=== PATIENT | female | born 1975 | race Caucasian/White ===

== ENCOUNTER 2021-11-04 09:35 | Outpatient (CLI) | payer OTHER, SELFPAY ==
--- NOTE | ~2021-11-04 | MM_ITS ---
EXAMINATION: MM screening lauren BI w keith HISTORY: Screening mammogram TECHNIQUE: Craniocaudal and mediolateral oblique 3-D tomosynthesis images were obtained and synthetic 2-D images were generated. CAD analysis was submitted and interpreted. COMPARISON: 01/10/2019 bilateral screening mammogram BREAST PARENCHYMAL COMPOSITION: There are scattered areas of fibroglandular density. FINDINGS: There is no evidence of suspicious mass, calcification, or architectural distortion to sugg est malignancy in either breast. There has been no suspicious interval change. IMPRESSION: 1. No mammographic evidence of malignancy. 2. Recommend routine screening mammography in one year. BI-RADS Category 1: Negative Reviewed, dictated and finalized at location B.
== END 2021-11-04 09:36 | disposition home or self-care (01) ==
LOC: ANHIMG 09:39
PROVIDERS: PCP Physician Assistant; Visit Provider Physician Assistant
DX: Z12.31 Encounter for screening mammogram for malignant neoplasm of breast (principal)
CPT/HCPCS: 77063; 77067

== ENCOUNTER → 2022-03-07 15:59 | Outpatient (CLI) | payer OTHER, SELFPAY ==
--- NOTE | ~2022-03-07 | US_ITS ---
EXAMINATION: US thyroid DATE: 03/07/2022 16:14 INDICATION: Nontoxic goiter. Radioactive iodine treatment 7 years ago. TECHNIQUE: Multiple ultrasound images of the thyroid were obtained. COMPARISON: None. FINDINGS: The right thyroid lobe measures 3.5 x 0.5 x 0.7 cm. The left thyroid lobe measures 2.8 x 0.6 x 0.9 c m. The isthmus measures 0.1 cm. There is normal echotexture and echogenicity throughout the thyroid g land. No discrete nodules identified. Normal vascular flow is present. IMPRESSION: Small thyroid gland without other sonographic abnormality. Reviewed, dictated and finalized at location K. GHTS STRATEGIST
== END ==
PROVIDERS: PCP Physician Assistant; Visit Provider Internal Medicine Endocrinology, Diabetes & Metabolism
DX: E04.9 Nontoxic goiter, unspecified (principal)
CPT/HCPCS: 76536

== ENCOUNTER 2023-08-11 08:41 | Outpatient (CLI) | payer OTHER, SELFPAY ==
--- NOTE | ~2023-08-11 | MM_ITS ---
EXAMINATION: MM screening lauren BI w keith HISTORY: Screening mammogram TECHNIQUE: Craniocaudal and mediolateral oblique 3-D tomosynthesis images were obtained and synthetic 2-D images were generated. CAD analysis was submitted and interpreted. COMPARISON: 11/04/2021, 01/10/2019 bilateral screening mammogram examinations BREAST PARENCHYMAL COMPOSITION: There are scattered areas of fibroglandular density. FINDINGS: There is no evidence of suspicious mass, calcification, or architectural distortion to sugg est malignancy in either breast. There has been no suspicious interval change. IMPRESSION: 1. No mammographic evidence of malignancy. 2. Recommend routine screening mammography in one year. BI-RADS Category 1: Negative Reviewed, dictated and finalized at location A.
== END 2023-08-11 08:42 ==
LOC: MICIMG 08:41
PROVIDERS: PCP Physician Assistant; Visit Provider Physician Assistant
DX: Z12.31 Encounter for screening mammogram for malignant neoplasm of breast (principal)
CPT/HCPCS: 77063; 77067

== ENCOUNTER → 2024-09-18 12:41 | Outpatient (CLI) | payer OTHER, SELFPAY ==
--- NOTE | ~2024-09-18 | XR_ITS ---
3 VIEWS THORACIC SPINE Ordering provider: Bree Cruz, PA History: . THORACIC BACK PAIN . Comparison: None. FINDINGS: VERTEBRAL BODIES: Normal height and alignment. No visible fracture or subluxation. DISK SPACES: Narrowing of the disc spaces at multiple levels in the upper thoracic area. SOFT TISSUES: Normal. IMPRESSION: No acute osseous abnormality of the thoracic spine. Reviewed, dictated and finalized at location A.
== END ==
LOC: EXPCRAD 12:46
PROVIDERS: PCP Physician Assistant; Visit Provider Physician Assistant
DX: M54.6 Pain in thoracic spine (principal)
CPT/HCPCS: 72072

== ENCOUNTER 2024-10-20 15:27 | Outpatient (CLI) | payer OTHER, SELFPAY ==
--- NOTE | ~2024-10-20 | MM_ITS ---
EXAMINATION: MM screening lauren BI w keith HISTORY: Screening TECHNIQUE: Craniocaudal and mediolateral oblique 3-D tomosynthesis images were obtained and synthetic 2-D images were generated. CAD analysis was submitted and interpreted. COMPARISON: Comparison to multiple prior studies sequentially, with oldest reviewed study dated 07/2018. BREAST PARENCHYMAL COMPOSITION: Not dense: There are scattered areas of fibroglandular density. FINDINGS: There is a new focal asymmetry in the lower central aspect of the left breast at approximat amanda 6:00, middle third. Right breast is stable without evidence for malignancy. IMPRESSION: 1. New focal left breast asymmetry lower central breast, middle third. 2. Additional mammographic views and possible breast ultrasound are recommended. BI-RADS Category 0: Incomplete: Needs additional imaging evaluation. Reviewed, dictated and finalized at location [] IMPRESSION: 1. New focal left breast asymmetry lower central breast, middle third. 2. Additional mammographic views and possible breast ultrasound are recommended . BI-RADS Category 0: Incomplete: Needs additional imaging evaluation.
== END 2024-10-20 15:28 | disposition home or self-care (01) ==
LOC: MICIMG 15:27
PROVIDERS: PCP Physician Assistant; Visit Provider Physician Assistant
DX: Z12.31 Encounter for screening mammogram for malignant neoplasm of breast (principal); N64.89 Other specified disorders of breast
CPT/HCPCS: 77063; 77067

== ENCOUNTER 2024-10-25 23:18 | Emergency (ER) | payer OTHER, SELFPAY ==
--- OUTSIDE RECORDS SUMMARY | 2024-10-25 23:21 | XMS_ITS | Encounter Summary ---
Author Organization [facility] Healthcare Address [address] [place] [id number] Care Team Providers Care Scullion Chief Name Role Phone Bree Cruz Primary Care Provider [phone]- [phone] Reason for Visit * Reason Onset Date Comments Test Results 10/21/2024 Encounter Details Date Type Department Care Team (Late st Contact Info) Description 10/21/2024 Results Follow-Up [facility] Family Medicine [address] [place] [address] Bree Cruz PA [address] [place] [address] Screening Mammogram Bilateral W Micheal Social History Tobacco Use Types Packs/Day Years Used Date Smoking Tobacco: Former Smokeless Tobacco: Never Alcohol Use Standard Drinks/Week Comments Yes 0 (1 standard drink = 0.6 oz pur e alcohol) AUDIT-C Answer Date Recorded Q1: How often do you have a drink containing alc ohol? 2-4 times a month 10/08/2024 Q2: How many drinks containi ng alcohol do you have on a typical day when you are drinking? 3 or 4 10/08/2024 Q3: How often do you have si x or more drinks on one occasion? Less than monthly 10/08/2024 PHQ-2 Answer Date Recorded PHQ-2 Total Score (If total score is 3 or more points, staff should administer the PHQ-9) 0 10/08/2024 Personal Safety Answer Date Recorded Have you ever been in or are you currently in a harmful physical or emotional relationship or is someone making you feel afraid or unsafe? 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 Per chart notes called back line and per back line transferred call to practice Does message need to be routed? Yes-Action Needed Reason for Warm Transfer: Patient returning call from practice Practice Accepted the Warm Transfer? Yes Additional Comments If YES above, and no barriers. documented in this encounter Plan of Treatment Not on file documented as of this encounter Visit Diagnoses Not on filedocumented in this encounter Care Teams Scullion Chief Relationship Specialty Start Date End Date Bree Cruz PA [address] [place] [address] PCP - General Internal Medicine 08/07/18 documented as of this encounter
--- OUTSIDE RECORDS SUMMARY | 2024-10-25 23:21 | XMS_ITS | Encounter Summary ---
Author Organization [facility] Healthcare Address [address] [place] [address] Care Team Providers Care Oil Refinery Process Technician Name Role Phone Bree Cruz Primary Care Provider [phone]- [phone] Encounter Details Date Type Department Care Team (Latest Contact Info) Description 10/04/2024 Results Follow-Up [facility] Family Medicine [address] [place] [address] Bree Cruz PA [address] [place] [address] Hemoglobin A1c, Comprehensive metabolic panel, Lipid panel, Vitamin B12 Social History Tobacco Use Types Packs/Day Years [...] on file Legal Sex 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
--- OUTSIDE RECORDS SUMMARY | 2024-10-25 23:21 | XMS_ITS | Referral Summary ---
Author Organization [facility] [place] [address] [place] [address] [place] [phone] Care Team Providers Care Dewer Name Role Phone Bree Cruz Primary Care Provider [phone] Encounters Date Type Department Care Team Description 10/21/2024 Orders Only [facility] Medicine [address] [place] [address] [place] [phone] Bree Cruz PA Abnormal mammogram (Primary Dx) 10/21/2024 Results Follow-Up [address] [place] [phone] Bree Cruz PA Screening Mammogram Bilateral W Micheal 10/16/2024 10:00 AM CDT Office Visit [facility] Hand Surgery [address] [place] [address] [place] [phone] Cielo Eldridge MD Osteoarthritis of carpometacarpal (CMC) joint of left thumb, unspecified osteoarthritis type (Primary Dx); Osteoarthritis of carpometacarpal (CMC) joint of right thumb, unspecified osteoarthritis type 10/08/2024 9:00 AM CDT Office Visit [address] [place] [phone] Bree Cruz PA Annual physical exam (Primary Dx); Hyperlipidemia associated with type 2 diabetes mellitus (HCC); Controlled type 2 diabetes mellitus without complication, without long-term current use of insulin (HCC); Situational anxiety; Acquired hypothyroidism; Vitamin D deficiency; Gastroesophageal reflux disease without esophagitis; Breast cancer screening by mammogram; Immunity status testing; Morbid obesity (HCC); BMI 39.0-39.9,adult 10/06/2024 Telephone [facility] Diabetes and Endocrinology [address] [place] [phone] Ruby Diaz, YASIR Med Refill (Levothyroxine) 10/04/2024 Results Follow-Up [address] [phone] Bree Cruz PA Hemoglobin A1c, Comprehensive metabolic panel, Lipid panel, Vitamin B12 10/03/2024 Telephone [facility] [address] [place] [phone] Ruby Diaz NP Prior Auth (Ozempic) 10/01/2024 Orders Only [address] [phone] Bree Cruz PA Controlled type 2 diabetes mellitus without complication, without long-term current use of insulin (HCC) (Primary Dx) 10/01/[address] [phone] Bree Cruz PA Medical Question/Miscellaneous 09/30/2024 Telephone [facility] [address] [phone] Ruby Diaz, YASIR Med Refill 09/20/2024 Results Follow-Up [address] [phone] Bree Cruz PA POCT urinalysis dipstick, Urine culture Urine, clean voided, XR Spine Thoracic 3 Vw 09/18/2024 11:30 AM CDT Office Visit [address] [phone] Bree Cruz PA Chronic left-sided thoracic back pain (Primary Dx); Primary osteoarthritis of both hands; BMI 40.0-44.9, adult (HCC); Obesity, morbid, BMI 40.0-49.9 (HCC) 09/18/2024 Nurse Triage [facility] [address] [facility] [address] [place] [phone] Doris Spence RN from Last 3 Months Allergies No known active allergies Medications cetirizine (ZyrTEC) 10 mg tablet Take 1 tablet (10 mg total) by mouth daily Active folic acid (FOLVITE) 1 mg tablet TAKE 1 TABLET EVERY DAY BY ORAL ROUTE IN THE MORNING FOR 90 DAYS. 07/02/19 23 Active ergocalciferol (VITAMIN D) 50,000 unit capsule Active omeprazole (PriLOSEC) 40 mg capsuleIndication s:Gastroesophagea l reflux disease without esophagitis TAKE 1 CAPSULE DAILY 90 capsule 3 04/28/19 25 Active semaglutide (Ozempic) 0.25 mg or 0.5 mg (2 mg/3 mL) pen injector injectionIndicati ons:Controlled type 2 diabetes mellitus without complication, without long-term current use of insulin ([facility]) Inject 0.5 mg under the skin once a week 9 mL 3 10/01/19 25 Active escitalopram (LEXAPRO) 20 mg tabletIndications :Situational anxiety Take 1 tablet (20 mg total) by mouth daily 90 tablet 1 10/07/19 25 Active meloxicam (MOBIC) 7.5 mg tabletIndications :Primary osteoarthritis of both hands Take 1 tablet (7.5 mg total) by mouth daily 90 tablet 1 10/07/19 25 Active metFORMIN XR (GLUCOPHAGE XR) 500 mg 24 hr tabletIndications :Controlled type 2 diabetes mellitus without complication, without long-term current use of insulin ([facility]) Take 2 tablets (1,000 mg total) by mouth daily with dinner 180 tablet 2 10/07/19 25 Active rosuvastatin (CRESTOR) 10 mg tabletIndications :Hyperlipidemia associated with type 2 diabetes mellitus (HCC) Take 1 tablet (10 mg total) by mouth daily 90 tablet 1 10/07/19 25 Active levothyroxine (SYNTHROID) 137 mcg tabletIndications :Acquired hypothyroidism Take 1 tablet (137 mcg total) by mouth 6 (six) times a week 72 tablet 3 10/18/19 25 026 Active metFORMIN XR (GLUCOPHAGE XR) 500 mg 24 hr tablet Take 2 tablets (1,000 mg total) by mouth daily with dinner 180 tablet 2 08/13/19 24 025 Discontinued levothyroxine (SYNTHROID) 137 mcg tabletIndications :Acquired hypothyroidism Take 1 tablet (137 mcg total) by mouth 6 (six) times a week 72 tablet 3 01/03/20 24 025 Discontinued(Re order) escitalopram (LEXAPRO) 20 mg tablet TAKE 1 TABLET BY MOUTH EVERY DAY 30 tablet 8 06/06/19 25 025 Discontinued semaglutide (Ozempic) 0.25 mg or 0.5 mg (2 mg/3 mL) pen injector injection INJECT 0.5MG UNDER THE SKIN EVERY 7 DAYS 9 mL 3 06/12/19 25 025 Discontinued(Re order) rosuvastatin (CRESTOR) 10 mg tablet TAKE 1 TABLET BY MOUTH EVERY DAY 30 tablet 8 09/03/19 25 025 Discontinued meloxicam (MOBIC) 7.5 mg tablet TAKE 1 TABLET BY MOUTH EVERY DAY 30 tablet 2 09/06/19 25 025 Discontinued levothyroxine (SYNTHROID) 137 mcg tabletIndications :Acquired hypothyroidism Take 1 tablet (137 mcg total) by mouth 6 (six) times a week 72 tablet 3 10/07/19 25 025 Discontinued(Re order) Hospital, Clinic, or Other Facility Administered Medication Ordered Dose Route Frequency Start Date End Date Status lidocaine (XYLOCAINE) 10 mg/mL (1 %) injection 1 mLIndications:Adminis tration of Local Anesthesia 1 mL One-Time Injection 10/16/2024 5 Ended lidocaine (XYLOCAINE) 10 mg/mL (1 %) injection 1 mLIndications:Adminis tration of Local Anesthesia 1 mL One-Time Injection 10/16/2024 5 Ended methylPREDNISolone acetate (DEPO-medrol) injection 40 mgIndications:Osteoar thritis of carpometacarpal (CMC) joint of left thumb, unspecified osteoarthritis type 40 mg intra-artic One-Time Injection 10/16/2024 5 Ended methylPREDNISolone acetate (DEPO-medrol) injection 40 mgIndications:Osteoar thritis of carpometacarpal (CMC) joint of right thumb, unspecified osteoarthritis type 40 mg intra-artic One-Time Injection 10/16/2024 5 Ended triamcinolone (KENALOG) 40 mg/mL injection 40 mgIndications:Osteoar thritis of carpometacarpal (CMC) joint of right thumb, unspecified osteoarthritis type 40 mg intra-artic One-Time Injection 10/16/2024 5 Ended Active Problems Problem Noted Date Diagnosed Date Primary osteoarthritis of both hands 09/28/2024 Hyperlipidemia associated with type 2 diabetes rory lambert 06/16/2024 Assessment & Plan (10/18/2024 11:28 PM CDT): Encouraged patient to follow low fat/low chol diet like the Mediterranean diet. Increase good fats in the diet. Increase exercise. Monitor labs as needed. Continue Crestor 10 Fatigue 09/26/2023 Controlled type 2 diabetes rory lambert without complication, without long-term current use of insulin 08/13/2023 Assessment & Plan (10/18/2024 11:28 PM CDT): Stressed importance of continued A1c control to minimize the fci effects of diabetes. Bring accuchecks to office when instructed to do so. Check A1c about every 3-6 months. Take medication as prescribed. Get annual eye exam. Encouraged TALITA/Statin if able to tolerate. Encouraged weight control and encouraged diabetic diet and exercise. Well-controlled by Dr. Contreras. Continue semaglutide and metformin managed by endocrinology Assessment & Plan (12/20/2023 9:51 AM CDT): Chronic problem. A1c improved from 6.1% 09/15/22 to now 5.3%. Current medications: Metformin XR 1000mg with dinner Ozempic 0.5mg weekly Will update labs. Verified that she uses mychart. Aware to check results/results letter in [employer]. Will contact by phone if needed. DM eye exam due (has never had) Discussed with Ashley Arciniega: Strive for regular exercise (30min most days) and diet (get at least 4-5 servings of fruit and veggies daily, avoid processed foods, increase lean protein intake and decrease carb portions as well as fruit juices, regular soda & desserts). Watch carbs and simple sugars. Check the feet daily for skin breakdown and infection. Assessment & Plan (08/13/2023 12:29 PM CDT): Importance of diet and exercise was discussed Patient not tolerating metformin very well Switch metformin to 500 mg, XR 2 tabs with dinner, might need to lower it to 1 tab Start semaglutide 0.25 mg weekly x4 weeks and then continue with 0.5 mg weekly The patient was provided with samples. Side effects were discussed. The patient to send a message via [employer] in 4 to 6 weeks to see how she is tolerating MATHEUS (obstructive sleep apnea) 01/16/2022 Assessment & Plan (07/17/2022 8:46 AM CDT): The patient has not been able to be compliant with the CPAP therapy because of a dry mouth/sore throat with a fullface mask. I have recommended that she contact Linda to see a variety of nasal CPAP mask/nasal pillows and pick out a new style of mask with a chinstrap to see if this will improve the dry mouth/sore throat and she will follow-up here in 2 months. Assessment & Plan (01/16/2022 9:48 AM CDT): Patient will continue with auto titrating CPAP set at 5-20 cm water pressure. Denied need for supplies. SELIN Mckeon Family history of colon cancer in father 022 Assessment & Plan (10/29/2021 3:24 PM CDT): Awaiting patient was schedule her colonoscopy for colon cancer screening. Assessment & Plan (09/17/2021 2:52 PM CDT): Patient does have a family history of colon cancer with her father. Will recommend screening colonoscopy. Referral placed. History of 2019 novel coronavirus disease (COVID -19) 08/23/2020 Overview (08/23/2020): 03/2020 Breast cancer screening by mammogram 08/23/2020 Assessment & Plan (10/18/2024 11:28 PM CDT): Mammogram order provided Assessment & Plan (07/15/2023 9:04 PM CDT): Mammogram order provided Assessment & Plan (10/01/2022 8:36 PM CDT): Mammogram order provided Assessment & Plan (09/17/2021 2:51 PM CDT): Mammogram order provided Assessment & Plan (08/23/2020 4:56 PM CDT): Mammogram order provided Situational anxiety 06/28/2019 Assessment & Plan (10/18/2024 11:27 PM CDT): Anxiety stable with the Lexapro 20 Assessment & Plan (09/26/2023 10:43 AM CDT): Symptoms are stable with Lexapro 20. Refills available at pharmacy Assessment & Plan (05/13/2023 8:35 PM HOSPITALITY JOB TITLES): Continue Lexapro 20 Assessment & Plan (10/01/2022 8:35 PM CDT): Stable with Lexapro 20. Refills available at pharmacy Assessment & Plan (10/29/2021 3:24 PM CDT): Stable with Lexapro 20 Assessment & Plan (09/17/2021 2:51 PM CDT): Patient is doing well with Lexapro 20 mg. She is happy with the results. Continue to monitor. Discussed re-evaluation in about a year to see if ready to taper versus continuing based on her symptoms. Assessment & Plan (05/01/2021 6:27 PM HOSPITALITY JOB TITLES): Patient has tolerated the Lexapro 10 without difficulty. Her symptoms seem to have increased with the spica COVID. She would like to increase the dose to 20 mg. New prescription sent. Follow-up in 4-6 weeks to reassess. Assessment & Plan (08/18/2019 7:52 PM CDT): Continue lexparo. Sxs are stable. Assessment & Plan (06/28/2019 6:59 PM CDT): Discussed anxiety/depression sxs. They have peaked in the last few weeks but admits have been around for years. Recheck labs. Encoruaged counseling Discussed medication vs. Behavioral changes. Willing to start medicaiton. Reviewed risks, benefit, alternatives, side effects and proper use. Start lexapro. Call if sxs worsen or has s/h thoughts. Idiopathic hyperprolactinemia 06/28/2019 Assessment & Plan (08/18/2019 7:50 PM CDT): Recheck prolactin for stability Assessment & Plan (06/28/2019 6:59 PM CDT): Check labs Chronic pain of left knee 09/09/2018 Assessment & Plan (12/16/2018 5:30 PM CDT): Resolved prior to getting the MRI. She is happy with just monitoring it. She is to call if she has any further problems or concerns. Assessment & Plan (09/22/2018 9:27 PM CDT): Check xray. IBU prn. If sxs persist, may consider PT or MRI due to locking. BMI 39.0-39.9,adult 08/08/2018 Assessment & Plan (10/18/2024 11:28 PM CDT): Discussed the patient's BMI. The BMI is above average. BMI management plan is completed. BMI Follow-up includes: nutrition counseling, exercise counseling and education provided. Patient has an obesity-related condition (not limited to: hypertension, obstructive sleep apnea, osteoarthritis, hyperlipidemia, diabetes, etc.). Therefore, morbid obesity may be documented for patients with a BMI between 35.00-39.99. Assessment & Plan (06/28/2019 6:58 PM CDT): Obesity is unchanged. Discussed the patient's BMI. The BMI is above average. BMI management plan is completed. BMI Follow-up includes: nutrition counseling, exercise counseling and education provided. Assessment & Plan (06/16/2019 2:04 PM CDT): Obesity is unchanged. Discussed the patient's BMI. The BMI is above average. BMI management plan is completed. BMI Follow-up includes: nutrition counseling, exercise counseling and education provided. Assessment & Plan (08/10/2018 10:09 AM CDT): Obesity is unchanged. Discussed the patient's BMI. The BMI is above average; BMI management plan is completed. General weight loss/lifestyle modification strategies discussed (elicit support from others; identify saboteurs; non-food rewards, etc). Morbid obesity 08/08/2018 Assessment & Plan (10/08/2024 9:05 AM CDT): Discussed the patient's BMI. The BMI is above average. BMI management plan is completed. BMI Follow-up includes: nutrition counseling, exercise counseling and education provided. Assessment & Plan (08/10/2018 10:08 AM CDT): Obesity is unchanged. Discussed the patient's BMI. The BMI is above average; BMI management plan is completed. General weight loss/lifestyle modification strategies discussed (elicit support from others; identify saboteurs; non-food rewards, etc). Acquired hypothyroidism 08/08/2018 Assessment & Plan (10/18/2024 11:27 PM CDT): Continue levothyroxine 137 mcg. Monitor labs. Assessment & Plan (12/20/2023 9:57 AM CDT): Chronic problem. Clinically euthryoid, last TSH suppressed at 0.184 08/13/23. Was at that time on both levothyroxine & cytomel. Cytomel stopped at that time and continues on levothyroxine 137 mcg daily. Aware to take 1st thing in morning, 30-60 minutes before food/drink/other medications. Will update TFTs today. Verified that she uses mychart. Aware to check results/results letter in mychart. Will contact by phone if needed. Assessment & Plan (09/26/2023 10:43 AM CDT): Continue levothyroxine. Managed by Dr. Contreras Assessment & Plan (08/13/2023 12:28 PM CDT): Chronic, probably over replaced Update TFTs Will adjust dose of medication, probably stopped Cytomel and continue with levothyroxine Assessment & Plan (05/13/2023 8:35 PM HOSPITALITY JOB TITLES): History of hypothyroidism. Was managed by Dr. Cuevas but she is moved out of the area. Would like to establish with a new upholstery trimmer. Recommend the [facility] group at [place]. Will make referral. She has all of her refills at this point to hold her over until her appointment Assessment & Plan (10/01/2022 8:36 PM CDT): Continue per Dr. Cuevas. She is managing her metformin levothyroxine and Cytomel Assessment & Plan (10/29/2021 3:27 PM CDT): Continue levothyroxine. Monitor labs. Assessment & Plan (09/17/2021 2:50 PM CDT): Continue levothyroxine. Monitor labs. Assessment & Plan (08/23/2020 4:54 PM CDT): Continue levothyroxine Assessment & Plan (08/18/2019 7:51 PM CDT): Continue replacement. Check labs Assessment & Plan (06/28/2019 6:58 PM CDT): Recheck levels Assessment & Plan (09/22/2018 9:27 PM CDT): Due for labs. Assessment & Plan (08/10/2018 10:09 AM CDT): Check labs. Continue repalcement Annual physical exam 08/08/2018 Assessment & Plan (10/18/2024 11:28 PM CDT): Encouraged healthy lifestyle, good nutrition and exercise. Encouraged Calcium and Vitamin D and weight bearing exercise for bone health. Reviewed immunizations Reviewed age appropirate screenings. Assessment & Plan (09/26/2023 10:43 AM CDT): Encouraged healthy lifestyle, good nutrition and exercise. Encouraged Calcium and Vitamin D and weight bearing exercise for bone health. Reviewed immunizations Reviewed age appropirate screenings. Assessment & Plan (10/01/2022 8:36 PM CDT): Encouraged healthy lifestyle, good nutrition and exercise. Encouraged Calcium and Vitamin D and weight bearing exercise for bone health. Reviewed immunizations Reviewed age appropirate screenings. Assessment & Plan (09/17/2021 2:50 PM CDT): Encouraged healthy lifestyle, good nutrition and exercise. Encouraged Calcium and Vitamin D and weight bearing exercise for bone health. Reviewed immunizations Reviewed age appropirate screenings. Assessment & Plan (08/23/2020 4:56 PM CDT): Encouraged healthy lifestyle, good nutrition and exercise. Encouraged Calcium and Vitamin D and weight bearing exercise for bone health. Reviewed immunizations Reviewed age appropirate screenings. Assessment & Plan (08/18/2019 7:53 PM CDT): Encouraged healthy lifestyle, good nutrition and exercise. Encouraged Calcium and Vitamin D and weight bearing exercise for bone health. Reviewed immunizations Reviewed age appropirate screenings. Assessment & Plan (08/10/2018 10:09 AM CDT): Encouraged healthy lifestyle, good nutrition and exercise. Encouraged Calcium and Vitamin D and weight bearing exercise for bone health. Reviewed immunizations Reviewed age appropirate screenings. Plans [facility] followup with [facility] Vitamin D deficiency 08/08/2018 Assessment & Plan (10/18/2024 11:27 PM CDT): Supplement Assessment & Plan (09/26/2023 10:43 AM CDT): Supplement Assessment & Plan (05/13/2023 8:34 PM HOSPITALITY JOB TITLES): Supplement Assessment & Plan (09/17/2021 2:50 PM CDT): Supplement Assessment & Plan (08/18/2019 7:50 PM CDT): supplement Assessment & Plan (08/10/2018 10:08 AM CDT): Recheck labs. Hasn't been taking replacement Gastroesophageal reflux disease without esophagi tis 08/08/2018 Assessment & Plan (10/18/2024 11:27 PM CDT): Continue omeprazole daily. Unable to completely taper off due to breakthrough symptoms Assessment & Plan (09/26/2023 11:14 AM CDT): Continue omeprazole. Try to decrease the dose and has breakthrough symptoms. Assessment & Plan (05/13/2023 8:35 PM HOSPITALITY JOB TITLES): Continue omeprazole p.r.n. Assessment & Plan (10/01/2022 8:35 PM CDT): Continue PPI daily. If she misses a dose she has breakthrough symptoms Assessment & Plan (09/17/2021 2:50 PM CDT): Continue omeprazole Assessment & Plan (08/23/2020 4:54 PM CDT): Continue PPI Assessment & Plan (01/04/2020 5:16 PM CDT): Discussed GERD at length including anatomy, behavioral changes (raise HOB, meal timings), dietary changes and medication options. Reviewed risks, benefits alternatives, side effects and proper use. Followup if sxs worsen or has hematochezia or hematemeis. Continue PPI as helping control sxs at this point. Assessment & Plan (08/18/2019 7:51 PM CDT): This is a significant, separately identifiable problem that was evaluated and managed on the same day as the wellness exam Increase the prilosec to 40mg bid. If sxs persist may consider imaging neck (history of thyroid ablation) vs referral to GI/ENT. Discussed GERD at length including anatomy, behavioral changes (raise HOB, meal timings), dietary changes and medication options. Reviewed risks, benefits alternatives, side effects and proper use. Followup if sxs worsen or has hematochezia or hematemeis. Assessment & Plan (08/10/2018 10:08 AM CDT): Discussed GERD at length including anatomy, behavioral changes (raise HOB, meal timings), dietary changes and medication options. Reviewed risks, benefits alternatives, side effects and proper use. Followup if sxs worsen or has hematochezia or hematemeis. Continue PPI Resolved Problems Problem Noted Date Diagnosed Date Resolved Date Encounter for routine gyneco logical examination with Papanicolaou smear of cervix 07/15/2023 09/26/2023 Assessment & Plan (07/15/2023 9:06 PM CDT): Encouraged healthy lifestyle, good nutrition and exercise. Encouraged Calcium and Vitamin D and weight bearing exercise for bone health. Reviewed immunizations Reviewed age appropirate screenings. Cervical cancer screening 07/15/2023 Assessment & Plan (07/15/2023 9:05 PM CDT): Pap smear obtained with HPV to reflex. Reviewed recommended screening. Need for vaccination 05/13/2023 025 Assessment & Plan (05/13/2023 8:38 PM HOSPITALITY JOB TITLES): Flu vaccine updated in the office today Bilateral thumb pain 05/13/2023 025 Assessment & Plan (07/15/2023 9:05 PM CDT): Bilateral thumb pain. Has tried Mobic and did not notice much change. Will refer to Dr. Eldridge for further evaluation Assessment & Plan (05/13/2023 8:38 PM HOSPITALITY JOB TITLES): Patient notes bilateral thumb pain. No know injury. Will check x-rays. Encouraged Mobic to see if that helps with the inflammation. May ice the area. Symptoms persist will consider referral to orthopedics for further evaluation. She is in agreement with the plan BMI 40.0-44.9, adult 10/19/2021 025 Assessment & Plan (09/18/2024 11:35 AM CDT): Discussed the patient's BMI. The BMI is above average. BMI management plan is completed. BMI Follow-up includes: nutrition counseling, exercise counseling and education provided. Assessment & Plan (09/26/2023 10:42 AM CDT): Discussed the patient's BMI. The BMI is above average. BMI management plan is completed. BMI Follow-up includes: nutrition counseling, exercise counseling and education provided. Assessment & Plan (07/15/2023 9:04 PM CDT): Discussed the patient's BMI. The BMI is above average. BMI management plan is completed. BMI Follow-up includes: nutrition counseling, exercise counseling and education provided. Assessment & Plan (05/13/2023 8:35 PM HOSPITALITY JOB TITLES): Discussed the patient's BMI. The BMI is above average. BMI management plan is completed. BMI Follow-up includes: nutrition counseling, exercise counseling and education provided. Assessment & Plan (10/01/2022 8:36 PM CDT): Discussed the patient's BMI. The BMI is above average. BMI management plan is completed. BMI Follow-up includes: nutrition counseling, exercise counseling and education provided. Assessment & Plan (10/19/2021 1:57 PM CDT): Obesity is unchanged. Discussed the patient's BMI. The BMI is above average. BMI management plan is completed. BMI Follow-up includes: nutrition counseling, exercise counseling and education provided. Obesity, morbid, BMI 40.0-49.9 10/19/2021 10/18/2024 Assessment & Plan (09/18/2024 11:36 AM CDT): Discussed the patient's BMI. The BMI is above average. BMI management plan is completed. BMI Follow-up includes: nutrition counseling, exercise counseling and education provided. Assessment & Plan (09/26/2023 10:43 AM CDT): Discussed the patient's BMI. The BMI is above average. BMI management plan is completed. BMI Follow-up includes: nutrition counseling, exercise counseling and education provided. has started her on Wegovy for weight management. Assessment & Plan (05/02/2023 7:47 AM HOSPITALITY JOB TITLES): Discussed the patient's BMI. The BMI is above average. BMI management plan is completed. BMI Follow-up includes: nutrition counseling, exercise counseling and education provided. Assessment & Plan (10/01/2022 8:35 PM CDT): Discussed the patients BMI: The BMI is above average BMI management is complete. BMI follow-up includes: Nutrition Counseling and education provided Assessment & Plan (10/29/2021 3:25 PM CDT): Obesity is unchanged. Discussed the patient's BMI. The BMI is above average. BMI management plan is completed. BMI Follow-up includes: nutrition counseling, exercise counseling and education provided. Discussed total calories had a count them. Encouraged to get 70-80 g of protein daily and keep her calories in check. Reviewed 30 will 500 calories is a lb weight so that deficit has to happen for weight loss. Offered follow-up to reassess but she wants to work on this over the next few months on her own. Will reassess next time she is in but she may follow-up at any time if she needs assistance. Snoring 10/17/2021 01/16/2022 Assessment & Plan (10/17/2021 10:56 AM CDT): Patient presents with snoring and daytime hypersomnia. I have recommended proceeding with a nocturnal polysomnogram with a split night protocol if necessary and no MSLT. She will follow-up here in 3 months. Primary insomnia 10/17/2021 10/18/2024 Assessment & Plan (10/17/2021 10:56 AM CDT): I did discuss cognitive behavioral therapy and sleep deprivation therapy with the patient. I have given her the 2 brochures that are published by the [place] [employer] regarding understanding insomnia and good sleep hygiene. Daytime sleepiness 09/17/2021 Assessment & Plan (10/29/2021 3:24 PM CDT): Waiting home sleep study which is now scheduled for December Assessment & Plan (09/17/2021 2:53 PM CDT): This is a significant, separately identifiable problem that was evaluated and managed on the same day as the wellness exam Patient notes multiple symptoms consistent with possible sleep apnea. Will refer to Dr. Swain for further evaluation and probable sleep study. Await recommendations. BMI 40.0-44.9, adult 09/13/2021 022 Assessment & Plan (09/13/2021 11:54 AM CDT): Obesity is unchanged. Discussed the patient's BMI. The BMI is above average. BMI management plan is completed. BMI Follow-up includes: nutrition counseling, exercise counseling and education provided. Morbid obesity with BMI of 40.0-44.9, adult 09/13/2021 10/19/2021 Assessment & Plan (09/13/2021 11:54 AM CDT): Obesity is unchanged. Discussed the patient's BMI. The BMI is above average. BMI management plan is completed. BMI Follow-up includes: nutrition counseling, exercise counseling and education provided. Prediabetes 08/23/2020 10/18/2024 Assessment & Plan (05/13/2023 8:35 PM HOSPITALITY JOB TITLES): Pre-diabetes/hyperglycemia is a precursor to Dm. Stressed importance of working on diet (decrease your simple sugars and one carbohydrate with each meal) and increase you exercise to achieve weight loss and this will help prevent you from progressing to diabetes. Continue metformin. She definitely has impaired glucose levels. She has been on metformin for awhile. Question could she have a diagnosis of diabetes that has not been identified because she has been on the metformin through this process. Discussed G LP for weight loss and will continue to monitor. She will discuss further with her upholstery trimmer that we set her up with at [facility] Assessment & Plan (10/01/2022 8:35 PM CDT): Pre-diabetes/hyperglycemia is a precursor to Dm. Stressed importance of working on diet (decrease your simple sugars and one carbohydrate with each meal) and increase you exercise to achieve weight loss and this will help prevent you from progressing to diabetes. Assessment & Plan (09/17/2021 2:51 PM CDT): Pre-diabetes/hyperglycemia is a precursor to Dm. Stressed importance of working on diet (decrease your simple sugars and one carbohydrate with each meal) and increase you exercise to achieve weight loss and this will help prevent you from progressing to diabetes. Assessment & Plan (08/23/2020 4:54 PM CDT): Pre-diabetes/hyperglycemia is a precursor to Dm. Stressed importance of working on diet (decrease your simple sugars and one carbohydrate with each meal) and increase you exercise to achieve weight loss and this will help prevent you from progressing to diabetes. BMI 40.0-44.9, adult 08/18/2019 022 Assessment & Plan (08/23/2020 4:11 PM CDT): Obesity is unchanged. Discussed the patient's BMI. The BMI is above average. BMI management plan is completed. BMI Follow-up includes: nutrition counseling, exercise counseling and education provided. Assessment & Plan (01/04/2020 5:16 PM CDT): Obesity is unchanged. Discussed the patient's BMI. The BMI is above average. BMI management plan is completed. BMI Follow-up includes: nutrition counseling, exercise counseling and education provided. Assessment & Plan (08/18/2019 4:36 PM CDT): Obesity is unchanged. Discussed the patient's BMI. The BMI is above average. BMI management plan is completed. BMI Follow-up includes: nutrition counseling, exercise counseling and education provided. Morbid obesity (CMS/HCC) 08/18/201903/2025 Assessment & Plan (07/15/2023 9:04 PM CDT): Discussed the patient's BMI. The BMI is above average. BMI management plan is completed. BMI Follow-up includes: nutrition counseling, exercise counseling and education provided. Assessment & Plan (08/23/2020 4:54 PM CDT): Obesity is unchanged. Discussed the patient's BMI. The BMI is above average. BMI management plan is completed. BMI Follow-up includes: nutrition counseling, exercise counseling and education provided. Assessment & Plan (01/04/2020 5:17 PM CDT): Obesity is unchanged. Discussed the patient's BMI. The BMI is above average. BMI management plan is completed. BMI Follow-up includes: nutrition counseling, exercise counseling and education provided. Assessment & Plan (08/18/2019 4:36 PM CDT): Obesity is unchanged. Discussed the patient's BMI. The BMI is above average. BMI management plan is completed. BMI Follow-up includes: nutrition counseling, exercise counseling and education provided. Acute non-recurrent maxillary sinusitis 06/16/2019 06/28/2019 Assessment & Plan (06/16/2019 2:04 PM CDT): Start antibiotic, antihistamine (Claritin OR Zyrtec), Mucinex 12hour and Steroid nasal spray (Flonase). Push fluids. Rest. Supportive care. If sxs worsen or don\'t improve, pt is to followup in the office. BMI 38.0-38.9,adult 12/16/2018 12/17/19 19 BMI 38.0-38.9,adult 12/16/2018 06/16/19 20 Assessment & Plan (12/16/2018 4:30 PM CDT): BMI Follow-up includes: Discussed diet and exercising counseling. Vitamin D deficiency 09/09/2018 020 Lipid screening 08/08/2018 09/09/2018 Assessment & Plan (08/10/2018 10:09 AM CDT): Check labs Diabetes mellitus screening 08/08/2018 09/09/2018 Assessment & Plan (08/10/2018 10:09 AM CDT): Check labs Other fatigue 08/08/2018 09/11/2021 Assessment & Plan (08/18/2019 7:52 PM CDT): Probably multifactorial. Check labs and followup to re-evaluate Assessment & Plan (06/28/2019 6:58 PM CDT): Probably multifactorial. Check labs and followup to re-evaluate Assessment & Plan (08/10/2018 10:10 AM CDT): Probably multifactorial. Check labs and followup to re-evaluate Immunizations Immunization Administration Dates Next Due Influenza, Quadrivalent, Spl it, Preservative Free, Intramuscular 05/02/2023 Influenza, Unspecified 04/09/2024(Deferr ed: Patient Refused),05/10/2021(Deferred: Patient Refused),05/10/2021(Deferred: Patient Refused),04/09/2020(Deferred: Patient Refused),06/26/2019(Deferred: Patient Refused) Pfizer SARS-CoV-2 Monovalent Vaccination (12+ Yrs) PURPLE 06/17/2020,05/20/2020 Tdap 08/08/2018 Social History Tobacco Use Types Packs/Day Years Used Date Smoking Tobacco: Former Smokeless Tobacco: Never Tobacco Cessation:Counseling Given: Not Answered Alcohol Use Standard Drinks/Week Comments Yes 0 [...] on file Legal Sex Female 8:43 PM HOSPITALITY JOB TITLES Gender Identity Not on file Sexual Orientation Not on file 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 file Not on file Not on f ile Last Filed Vital Signs Vital Sign Reading Time Taken Comments Blood Pressure 120/82 10/08/2024 9:02 AM CDT Pulse 67 10/08/2024 9:02 AM CDT Temperature 36.7 C (98.1 F) 10/08/2024 9:02 AM CDT Respiratory Rate 16 12/20/2023 9:21 AM CDT Oxygen Saturation 98% 10/08/2024 9:02 AM CDT Inhaled Oxygen Concentration - - Weight 104.8 kg (231 lb) 10/08/2024 9:02 AM CDT Height 162.6 cm (5' 4) 10/08/2024 9:02 AM CDT Body Mass Index 39.65 10/08/2024 9:02 AM CDT Plan of Treatment Not on file Procedures Procedure Name Priority Date/Time Associated Diagnosis Comments SCREENING MAMMOGRAM BILATERAL W MICHEAL Schedule Routine, Read Routine (OP Routine) 10/20/2024 Breast cancer screening by mammogram CA ARTHROCENTESIS ASPIR&/INJ SMALL JT/BURSA W/O US Routine 10/16/2024 10:00 AM CDT Osteoarthritis of carpometacarpal (CMC) joint of right thumb, unspecified osteoarthritis type CA ARTHROCENTESIS ASPIR&/INJ SMALL JT/BURSA W/O US Routine 10/16/2024 10:00 AM CDT Osteoarthritis of carpometacarpal (CMC) joint of left thumb, unspecified osteoarthritis type VITAMIN B12 Routine 10/03/2024 9:47 AM CDT Controlled type 2 diabetes mellitus without complication, without long-term current use of insulin (HCC) LIPID PANEL Routine 10/03/2024 9:46 AM CDT Controlled type 2 diabetes mellitus without complication, without long-term current use of insulin (HCC) COMPREHENSIVE METABOLIC PANEL Routine 10/03/2024 9:46 AM CDT Controlled type 2 diabetes mellitus without complication, without long-term current use of insulin (HCC) HEMOGLOBIN A1C Routine 10/03/2024 9:46 AM CDT Controlled type 2 diabetes mellitus without complication, without long-term current use of insulin (HCC) XR SPINE THORACIC 3 VIEWS Schedule Routine, Read Routine (OP Routine) 09/22/2024 1:56 PM CDT Chronic left-sided thoracic back pain POCT URINALYSIS DIPSTICK Routine 09/18/2024 11:57 AM CDT Chronic left-sided thoracic back pain URINE CULTURE Routine 09/18/2024 11:47 AM CDT Chronic left-sided thoracic back pain ALBUMIN CREATININE RATIO, URINE Routine 06/06/2024 7:22 AM HOSPITALITY JOB TITLES Type 2 diabetes mellitus without complication, without long-term current use of insulin (HCC) PAP AND HPV, REFLEX TO HPV GENOTYPES Routine 07/09/2023 4:32 PM CDT Cervical cancer screening COLONOSCOPY 08/01/2022 8:16 AM CDT from Last 3 Months or Most Recently Relevant to Health Maintenance Results * (ABNORMAL) Screening Mammogram Bilateral W Micheal (10/20/2024) Anatomical Region Laterality Modality Breast Bilateral Mammography 10/20/2024 Impressions 10/20/2024 11:45 AM CDT New focal left breats asymmetry lower central breast middle third. Additional mammographic views and possible breast US are recommended. us Bree NEGRON IMG MAMMO PROCEDURES Final Result * CA ARTHROCENTESIS ASPIR&/INJ SMALL JT/BURSA W/O US (10/16/2024 10:00 AM CDT) Narrative Cielo Eldridge MD - 10/16/2024 10:00 AM CDT Cielo Eldridge MD 10/17/2024 6:33 AM Small Joint (Foot, Fingers, Toes) Injection: L thumb CMC Performed by: Cielo Eldridge MD Authorized by: Cielo Eldridge MD Small Joint Injection/Aspiration: Consent Given by: Patient Verbal consent obtained?: Yes Written consent obtained?: No Supporting Documentation: Indications: Pain Procedure Details: Location: Thumb Site: L thumb CMC Prep: patient was prepped and draped in usual sterile fashion Medications: 40 mg triamcinolone 40 mg/mL; 1 mL lidocaine 10 mg/mL (1 %); 40 mg methylPREDNISolone acetate 40 mg/mL Patient tolerance: Patient tolerated the procedure well with no immediate complications us Cielo Eldridge MD IN CLINIC/BEDSIDE ORDERAB LES Final Result * CA ARTHROCENTESIS ASPIR&/INJ SMALL JT/BURSA W/O US (10/16/2024 10:00 AM CDT) Narrative Cielo Eldridge MD - 10/16/2024 10:00 AM CDT Cielo Eldridge MD 10/17/2024 6:33 AM Small Joint (Foot, Fingers, Toes) Injection: R thumb CMC Performed by: Cielo Eldridge MD Authorized by: Cielo Eldridge MD Small Joint Injection/Aspiration: Consent Given by: Patient Verbal consent obtained?: Yes Written consent obtained?: No Supporting Documentation: Indications: Pain Procedure Details: Location: Thumb Site: R thumb CMC Prep: patient was prepped and draped in usual sterile fashion Medications: 1 mL lidocaine 10 mg/mL (1 %); 40 mg methylPREDNISolone acetate 40 mg/mL Patient tolerance: Patient tolerated the procedure well with no immediate complications Cielo Eldridge MD IN CLINIC/BEDSIDE ORDERAB LES Final Result * Vitamin B12 (10/03/2024 9:47 AM CDT) [facility] Vitamin B12 321 232 - 1,245 pg/mL [facility] - Blood 10/03/2024 9:47 AM CDT 10/03/2024 Narrative [facility] - 10/04/2024 9:36 AM CDT Performed at: [address] [id number] Hand Tube Winder: Sg Edward PhD, Phone: [phone] Bree NEGRON LAB BLOOD ORDERABLES Final Result Performing Organization Address [facility] Co de Phone Number [facility] * (ABNORMAL) Hemoglobin A1c (10/03/2024 9:46 AM CDT) [facility] Hgb A1C 5.7(H) 4.8 - 5.6 % [facility] - Comment: Prediabetes: 5.7 - 6.4 Diabetes: >6.4 Glycemic control for adults with diabetes: <7.0 Blood 10/03/2024 9:46 AM CDT 10/03/2024 Narrative [facility] - 10/04/2024 7:37 AM CDT Performed at: [address] [id number] Hand Tube Winder: Sg Edward PhD, Phone: [phone] Bree NEGRON LAB BLOOD ORDERABLES Final Result Performing Organization Address [facility] de Phone Number [facility] * Lipid panel (10/03/2024 9:46 AM CDT) Cholesterol 123 100 - 199 mg/dL [facility] - 01 Triglycerides 122 0 - 149 mg/dL [facility] - 01 HDL Cholesterol 50 >39 mg/dL [facility] - 01 VLDL 22 5 - 40 mg/dL [facility] - 01 LDL, calculated 51 0 - 99 mg/dL [facility] - 01 Blood 10/03/2024 9:46 AM CDT 10/03/2024 Narrative [facility] - 10/04/2024 9:36 AM CDT Performed at: [address] [id number] Hand Tube Winder: Sg Edward PhD, Phone: [phone] Bree NEGRON LAB BLOOD ORDERABLES Final Result [facility] - 01 * (ABNORMAL) Comprehensive metabolic panel (10/03/2024 9:46 AM CDT) Glucose 84 70 - 99 mg/dL [facility] - 01 BUN 12 6 - 24 mg/dL [facility] - 01 Creatinine, Serum 0.77 0.57 - 1.00 mg/dL [facility] - 01 eGFR 96 >59 mL/min/1.7 3 [facility] - 01 BUN/creat ratio 16 9 - 23 [facility] - 01 Sodium 139 134 - 144 mmol/L [facility] - 01 Potassium, sr 4.4 3.5 - 5.2 mmol/L [facility] - 01 Chloride 108(H) 96 - 106 mmol/L [facility] - 01 CO2 16(L) 20 - 29 mmol/L [facility] - 01 Calcium 8.8 8.7 - 10.2 mg/dL [facility] - 01 Protein, sr 6.7 6.0 - 8.5 g/dL [facility] - 01 Albumin 4.2 3.9 - 4.9 g/dL [facility] - 01 Globulin, Total 2.5 1.5 - 4.5 g/dL [facility] - 01 Bilirubin, Total 1.0 0.0 - 1.2 mg/dL [facility] - 01 Alk phos 52 44 - 121 IU/L [facility] - 01 AST 25 0 - 40 IU/L [facility] - 01 ALT 20 0 - 32 IU/L [facility] - 01 Blood 10/03/2024 9:46 AM CDT 10/03/2024 Narrative [facility] - 10/04/2024 9:36 AM CDT Performed at: - [address] [id number] Hand Tube Winder: Sg Edward PhD, Phone: [phone] Bree NEGRON LAB BLOOD ORDERABLES [facility] - 01 * XR Spine Thoracic 3 Vw (09/22/2024 1:56 PM CDT) Anatomical Region Laterality Modality Spine N/A Radiographic Maty ging Impressions 09/22/2024 1:56 PM CDT No acute osseous abnormality of the thoracic spine Bree NEGRON IMG XR PROCEDURES Final Re sult * (ABNORMAL) POCT urinalysis dipstick (09/18/2024 11:57 AM CDT) Glucose, ur, POC Negative Negative Bilirubin, ur, POC Negative Negative Ketones, ur, POC Negative Negative Specific [place], POC 1.030 1.003 - 1.030 Blood, ur, POC Negative Negative pH, ur, POC 5.5 5.0 - 8.0 Protein, ur, POC Negative Negative Urobilinogen, urine, POC 0.2 0.2 - 1.0 mg/dL Nitrite, ur, POC Negative Negative Leukocytes, ur, POC Trace(A) Negative Lot Number [id number] Urine 09/18/2024 11:5 7 AM CDT Bree NEGRON POINT OF CARE TEST ORDERAB LES Final Result * Urine culture Urine, clean voided (09/18/2024 11:47 AM CDT) Urine culture [facility] Comment: CULTURE, URINE, ROUTINE Micro Number: [id number] Test Status: Final Specimen Source: Urine Specimen Quality: Adequate Result: Mixed genital luis miguel isolated. These superficial bacteria are not indicative of a urinary tract infection. No further organism identification is warranted on this specimen. If clinically indicated, recollect clean-catch, mid-stream urine and transfer immediately to Urine Culture Transport Tube. Urine, clean voided 09/18/2024 11:47 AM CDT 09/19/2024 4:26 AM CDT Bree NEGRON LAB MICROBIOLOGY - GENERAL ORDERABLES Final Result Performing Organization Address City/[facility]/ZIP Co de Phone Number [facility] [address] [place] [address] * Albumin Creatinine Ratio, Urine (06/06/2024 7:22 AM HOSPITALITY JOB TITLES) Creatinine ur 213.1 Not Estab. mg/dL [facility] - 01 Microalbumin, ur 8.7 Not Estab. ug/mL [facility] - 01 Microalbumin/cre at ratio 4 0 - 29 mg/g creat [facility] - 01 Comment: Normal: 0 - 29 Moderately increased: 30 - 300 Severely increased: >300 Urine 06/06/2024 7:22 AM HOSPITALITY JOB TITLES 06/06/2024 Narrative [facility] - 06/07/2024 9:36 AM HOSPITALITY JOB TITLES Performed at: [address] [place] [id number] Hand Tube Winder: Sg Edward PhD, Phone: [phone] Bree NEGRON LAB URINE ORDERABLES Final Result [facility] - 01 * Pap and HPV, reflex to HPV Genotypes (07/09/2023 4:32 PM CDT) CLINICAL INFORMATION: [facility] Comment:CX CANCER SCREENING LMP [facility] Comment:03/2024 Previous Pap [facility] Comment:INFORMATION NOT PROV IDED Prev. Bx [facility] Comment:INFORMATION NOT PROV IDED SOURCE: [facility] Comment:Cervix, Endocervix Pap, specimen adequacy [facility] Comment: Satisfactory for evaluation. Endocervical/transformation zone component present. HPV interp [facility] Comment: Cytology Results: Negative for intraepithelial lesion or malignancy. COMMENTS [facility] Comment: This Pap test has been evaluated with computer assisted technology. [facility] Comment: MMW, CT(ASCP) CT screening location: [place] [address] [address] [address] Comment [facility] Comment: EXPLANATORY NOTE: The Pap is a screening test for cervical cancer. It is not a diagnostic test and is subject to false negative and false positive results. It is most reliable when a satisfactory sample, regularly obtained, is submitted with relevant clinical findings and history, and when the Pap result is evaluated along with historic and current clinical information. Human papillomavirus DNA, High Risk E6/E7 Not Detected NOT DETECTED [facility] Comment: Not Detected High Risk HPV types (16,18,31,33,35,39,45,51,52, 56,58,59,66,68) were not detected. Other HPV types which cause anogenital lesions may be present. The significance of the other types of HPV in malignant processes has not been established. Methodology: Real Time PCR Thin prep 07/09/2023 4:32 PM CDT 07/12/2023 6:32 AM CDT Bree NEGRON LAB CYTOLOGY ORDERABLES Fi nal Result [facility] [address] [place] [id number] [place] [address] [facility] CHADD Mercado [phone] * COLONOSCOPY (08/01/2022 8:16 AM CDT) Anatomical Region Laterality Modality Other Narrative Procedure Note Claritza Acevedo MD - 08/01/2022 8:[address] [facility] GI ENDOSCOPY Patient Name: Ashley Arciniega Procedure Date: 08/01/2022 8:16 AM Date of : 1975 Admit Type: Outpatient Age: 47 Gender: Female Attending MD: Claritza Acevedo M.D. Room: [facility] ENDOSCOPY ROOM 05 Note Status: Finalized Procedure: Colonoscopy Indications: Family history of colon cancer in a first-degree relative before age 60 years Referring MD: Providers: Claritza Acevedo M.D. Medicines: See the Anesthesia note for documentation of the administered medications Complications: No immediate complications. Estimated Blood Loss: Estimated blood loss was minimal. Procedure: The benefits, risks and alternatives of theprocedure and sedation were discussed and informed consentwas obtained. All questions were answered. Please referto the signed informed consent document in the medical record. The scope was passed under direct vision.The [id number] colonoscope was introduced through theanus and advanced to the cecum, identified byappendiceal orifice and ileocecal valve. The colonoscopy was performed without difficulty. The patient tolerated the procedure well. The quality of the bowel preparation was adequate. Findings: The perianal and digital rectal examinations were normal. An 8 mm polyp was found in the descending colon. The polyp wassessile. The polyp was removed with a hot biopsy forceps. Resection andretrieval were complete. Normal mucosa was found in the right colon. Biopsies were taken witha cold forceps for histology. Internal hemorrhoids were found during retroflexion. The hemorrhoids were small. The terminal ileum appeared normal. Impression: - One 8 mm polyp in the descending colon, removedwith a hot biopsy forceps. Resected and retrieved. - Normal mucosa in the right colon. Biopsied. - Internal hemorrhoids. - The examined portion of the ileum was normal. Recommendation: - Discharge patient to home. - Repeat colonoscopy date to be determined after pending pathology results are reviewed for surveillance. - No aspirin, ibuprofen, naproxen, or other non-steroidal anti-inflammatory drugs for 5 days. Claritza Acevedo M.D. Claritza Acevedo M.D. 08/01/2022 8:42:23 AM . Number of Addenda: 0 Note Initiated On: 08/01/2022 8:16 AM Recognized by the [place] [employer] for promoting quality in endoscopy Claritza Acevedo MD ENDOSCOPY PROCEDURES Final Resul t from Last 3 Months or Most Recently Relevant to Health Maintenance Insurance [facility] [place] [address] [facility] [employer] Care Teams Dewer Relationship Specialty Start Date End Date Bree Cruz [place] [address] [address] PCP - General Internal Medicine 08/07/18
--- OUTSIDE RECORDS SUMMARY | 2024-10-25 23:21 | XMS_ITS | Encounter Summary ---
Author Organization [facility] Healthcare Address [address] [place] [address] Care Team Providers Care Sweep Press Operator Name Role Phone Bree Cruz Primary Care Provider [phone]- [phone] Encounter Details Date Type Department Care Team (Late st Contact Info) Description 09/20/2024 Results Follow-Up [facility] Medical Group Family Medicine [address] [place] [address] Bree Cruz PA [address] [place] [address] POCT urinalysis dipstick, Urine culture Urine, clean voided, XR Spine Thoracic 3 Vw Social History Tobacco Use Types Packs/Day Years Used Date Smoking Tobacco: Former Smokeless Tobacco: Never Alcohol Use Standard Drinks/Week Comments Yes 0 (1 standard drink = 0.6 oz pur e alcohol) AUDIT-C Answer Date Recorded Q1: How often do you have a drink containing alc ohol? 2-4 times a month 09/18/2024 Q2: How many drinks containi ng alcohol do you have on a typical day when you are drinking? 3 or 4 09/18/2024 Q3: How often do you have si x or more drinks on one occasion? Less than monthly 09/18/2024 PHQ-2 Answer Date Recorded PHQ-2 Total Score (If total score is 3 or more points, staff should administer the PHQ-9) 0 09/18/2024 Personal Safety Answer Date Recorded Have you ever been in or are you currently in a harmful physical or emotional relationship or is someone making you feel afraid or unsafe? 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
--- OUTSIDE RECORDS SUMMARY | 2024-10-25 23:21 | XMS_ITS | Encounter Summary ---
Author Organization [facility] Address [address] [place] [address] Care Team Providers Care Or Scrub Tech Name Role Phone Bree Cruz Primary Care Provider [phone]- [phone] Reason for Visit * Reason Onset Date Comments Medical Question/Miscellaneous 10/01/2024 Encounter Details Date Type Department Care Team (Late st Contact Info) Description 10/01/2024 Telephone [facility] Family Medicine [address] [place] [address] Bree Cruz PA [address] [place] [address] Medical Question/Miscellaneous Social History Tobacco Use Types Packs/Day Years [...] on file Legal Sex Female 8:43 PM REVENUE TAX SPECIALIST Gender Identity Not on file Sexual Orientation Not on file 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 Called and LVM to make pt aware. * Telephone Encounter - Bree Cruz PA - 10/01/2024 10:31 AM CDT Order Lipids, A1c, CMP, B12 Dx: diabetes Ty * Telephone Encounter - Krista Sinclair - 10/01/2024 8:44 AM CDT Medical Question/Miscellaneous Caller???s Concern: patient has a preventative scheduled on 10/08 She uses [facility],please reach out if you would like patient to have her labs done. ( Per pfs) Does message need to be routed? Yes-Action Needed documented in this encounter Plan of Treatment Not on file documented as of this encounter Visit Diagnoses Not on filedocumented in this encounter Care Teams Or Scrub Tech Relationship Specialty Start Date End Date Bree Cruz PA [facility] [address] PCP - General Internal Medicine 08/07/18 documented as of this encounter
--- OUTSIDE RECORDS SUMMARY | 2024-10-25 23:21 | XMS_ITS | Clinical Summary ---
Author Organization [facility] Address [address] [place] [address] Care Team Providers Care Customer Success Advocate Name Role Phone Unavailable Primary Care Provider Unavailabl e Social History Tobacco Use Types Packs/Day Years Used Date Smoking Tobacco: Never Assessed Comments Unknown Sex and Gender Information Value Date Recorded Sex Assigned at Not on file Legal Sex Female 7:17 PM CDT Gender Identity Not on file Sexual Orientation Not on file Plan of Treatment Health Maintenance Due Date Last Done Comments Cervical Cancer Screening Pa p Smear (Age 30 to 64) Every 3 Years 1977 Colorectal Cancer Screening Colonoscopy (10 Years) 1977 Annual Physical 1980 Hepatitis C 1995 DTaP, Tdap and Td Vaccines ( 1 - Tdap) 1996 Hepatitis B Vaccines (1 of 3 - 19+ 3-dose series) 1996 Cervical Cancer Screening Pa p with HPV Testing (Age 30 to 64) Every 5 Years 2007 Cervical Cancer Screening with HPV 2007 Mammogram Screening 2017 COVID-19 Vaccine (2023-2 5 season) 2023 Meningococcal B Vaccine Aged Out No l onger eligible based on patient's age to complete this topic Meningococcal Vaccine Aged Out No henry saeid eligible based on patient's age to complete this topic Pneumococcal Vaccine: Pediat rics (0 to 5 Years) and At-Risk Patients (6 to 49 Years) Aged Out No longer eligible b ased on patient's age to complete this topic RSV Immunizations Under 20 Months Aged Out No longer eligible based on patient's age to complete this topic
--- OUTSIDE RECORDS SUMMARY | 2024-10-25 23:21 | XMS_ITS | Clinical Summary ---
Author Organization [facility] [address] [facility] Address [address] [place] [address] Care Team Providers Care Industrial Maintenance Manager Name Role Phone Bree Cruz Primary Care Provider +1- [phone] Allergies No known active allergies Medications cetirizine [...] without long-term current use of insulin (HCC) Inject 0.5 mg under the skin once [...] without long-term current use of insulin (HCC) Take 2 tablets (1,000 mg total) by [...] Local Anesthesia 1 mL One-Time Injection 10/16/2024 07/10/202 5 Ended lidocaine (XYLOCAINE) 10 mg/mL (1 [...] of continued A1c control to minimize the retirement effects of diabetes. Bring accuchecks to office [...] Will update labs. Verified that she uses [facility]. Aware to check results/results letter in [facility]. Will contact by phone if needed. DM [...] The patient to send a message via [employer] in 4 to 6 weeks to see [...] cm water pressure. Denied need for supplies. DME Linda Family history of colon cancer in father [...] pharmacy Assessment & Plan (05/13/2023 8:35 PM CLERICAL SUPPORT SPECIALIST): Continue Lexapro 20 Assessment & Plan (10/01/2022 [...] symptoms. Assessment & Plan (05/01/2021 6:27 PM CLERICAL SUPPORT SPECIALIST): Patient has tolerated the Lexapro 10 without [...] update TFTs today. Verified that she uses [facility]. Aware to check results/results letter in [facility]. Will contact by phone if needed. Assessment & Plan (09/26/2023 10:43 AM CDT): Continue levothyroxine. Managed by Dr. Contreras Assessment & Plan (08/13/2023 12:28 PM CDT): Chronic, probably over replaced Update TFTs Will adjust dose of medication, probably stopped Cytomel and continue with levothyroxine Assessment & Plan (05/13/2023 8:35 PM CLERICAL SUPPORT SPECIALIST): History of hypothyroidism. Was managed by Dr. Cuevas but she is moved out of the area. Would like to establish with a new heavy equipment field mechanic. Recommend the [facility] Endocrine group at [place]. Will make referral. She has all of [...] Reviewed immunizations Reviewed age appropirate screenings. Plans AUDIO RECORDING ENGINEER followup with AUDIO RECORDING ENGINEER Vitamin D deficiency 08/08/2018 Assessment & Plan (10/18/2024 11:27 PM CDT): Supplement Assessment & Plan (09/26/2023 10:43 AM CDT): Supplement Assessment & Plan (05/13/2023 8:34 PM CLERICAL SUPPORT SPECIALIST): Supplement Assessment & Plan (09/17/2021 2:50 PM [...] symptoms. Assessment & Plan (05/13/2023 8:35 PM CLERICAL SUPPORT SPECIALIST): Continue omeprazole p.r.n. Assessment & Plan (10/01/2022 [...] 025 Assessment & Plan (05/13/2023 8:38 PM CLERICAL SUPPORT SPECIALIST): Flu vaccine updated in the office today Bilateral thumb pain 05/13/2023 025 Assessment & Plan (07/15/2023 9:05 PM CDT): Bilateral thumb pain. Has tried Mobic and did not notice much change. Will refer to Dr. Eldridge for further evaluation Assessment & Plan (05/13/2023 8:38 PM CLERICAL SUPPORT SPECIALIST): Patient notes bilateral thumb pain. No know [...] provided. Assessment & Plan (05/13/2023 8:35 PM CLERICAL SUPPORT SPECIALIST): Discussed the patient's BMI. The BMI is [...] management. Assessment & Plan (05/02/2023 7:47 AM CLERICAL SUPPORT SPECIALIST): Discussed the patient's BMI. The BMI is [...] 2 brochures that are published by the [place] [employer] regarding understanding insomnia [...] 10/18/2024 Assessment & Plan (05/13/2023 8:35 PM CLERICAL SUPPORT SPECIALIST): Pre-diabetes/hyperglycemia is a precursor to Dm. Stressed [...] monitor. She will discuss further with her heavy equipment field mechanic that we set her up with at [facility] Assessment & Plan (10/01/2022 8:35 PM CDT): [...] multifactorial. Check labs and followup to re-evaluate Encounters Date Type Department Care Team Description 10/21/2024 Orders Only [facility] [address] [place] [phone] Bree Cruz PA Abnormal mammogram (Primary Dx) 10/21/2024 Results Follow-Up [facility] [address] [place] [address] [address] [place] [address] Bree Cruz PA Screening Mammogram Bilateral W Micheal 10/16/2024 10:00 AM CDT Office Visit [facility] Hand Surgery [address] [place] [address] [place] [phone] Cielo Eldridge MD Osteoarthritis of carpometacarpal (CMC) joint of left thumb, unspecified osteoarthritis type (Primary Dx); Osteoarthritis of carpometacarpal (CMC) joint of right thumb, unspecified osteoarthritis type 10/08/2024 9:00 AM CDT Office Visit [address] [place] [phone] Bree Cruz PA Annual physical exam (Primary Dx); Hyperlipidemia associated with type 2 diabetes mellitus (HCC); Controlled type 2 diabetes mellitus without complication, without long-term current use of insulin (HCC); Situational anxiety; Acquired hypothyroidism; Vitamin D deficiency; Gastroesophageal reflux disease without esophagitis; Breast cancer screening by mammogram; Immunity status testing; Morbid obesity (HCC); BMI 39.0-39.9,adult 10/06/2024 Telephone [facility] Diabetes and Endocrinology [address] [place] [phone] Ruby Diaz NP Med Refill (Levothyroxine) 10/04/2024 Results Follow-Up [address] [place] [phone] Bree Cruz PA Hemoglobin A1c, Comprehensive metabolic panel, Lipid panel, Vitamin B12 10/03/2024 Telephone [facility] End[facility] [address] [place] [phone] Ruby Diaz, YASIR Prior Auth (Ozempic) 10/01/2024 Orders Only [address] [place] [phone] Bree Cruz PA Controlled type 2 diabetes mellitus without complication, without long-term current use of insulin (HCC) (Primary Dx) 10/01/[address] [place] [phone] Bree Cruz PA Medical Question/Miscellaneous 09/30/2024 Telephone [facility] [address] [address] Ruby Diaz NP Med Refill 09/20/2024 Results Follow-Up [address] [address] Bree Cruz PA POCT urinalysis dipstick, Urine culture Urine, clean voided, XR Spine Thoracic 3 Vw 09/18/2024 11:30 AM CDT Office Visit [address] [phone] Bree Cruz PA Chronic left-sided thoracic back pain (Primary Dx); Primary osteoarthritis of both hands; BMI 40.0-44.9, adult ([facility]); Obesity, morbid, BMI 40.0-49.9 (HCC) 09/18/2024 Nurse Triage [address] [place] [phone] Doris Spence RN from Last 3 Months Immunizations Immunization Administration Dates Next Due Influenza, Quadrivalent, Spl it, Preservative Free, Intramuscular 05/02/2023 Influenza, Unspecified 04/09/2024(Deferr ed: Patient Refused),05/10/2021(Deferred: Patient Refused),05/10/2021(Deferred: Patient Refused),04/09/2020(Deferred: Patient Refused),06/26/2019(Deferred: Patient Refused) Pfizer SARS-CoV-2 Monovalent Vaccination (12+ Yrs) PURPLE 06/17/2020,05/20/2020 Tdap 08/08/2018 Surgical History Surgery Date Site/Laterality Comments THYROID SURGERY SECTION [id number] CHOLECYSTECTOMY O5 [id number] Medical History Medical History Date Comments COVID-19 virus infection 04/04/2020 recover ed Hypothyroid GERD (gastroesophageal reflux disease) Anxiety Seasonal allergies Sleep apnea 2022 Family History Medical History Relation Name Comments COPD Father TH Cancer Father TH Colon cancer Father TH Breast cancer Mother TUCKER Cancer Mother TUCKER Heart attack Mother TUCKER Heart disease Mother TUCKER Relation Name Status Comments Father TH Mother TUCKER Social History Tobacco Use Types Packs/Day Years [...] on file Legal Sex Female 8:43 PM CLERICAL SUPPORT SPECIALIST Gender Identity Not on file Sexual Orientation Not on file 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 Not on file Not on file Not on f ile Obstetrics History Last Filed Vital Signs Vital Sign Reading [...] 10/08/2024 9:02 AM CDT Plan of Treatment Health Maintenance Due Date Last Done Comments Hepatitis C Screening 1977 Dilated Eye Exam 1977 Hepatitis B Screening 1995 Pneumococcal vaccine <65 (1 of 2 - PCV) 1996 Covid-19 Vaccine (4 - 2023-2 5 season) 2023 05/05/2021, 06/17/2020, 05/20/2020 Influenza Vaccine (#1) 2024 05/02/2023, 2020 Foot Exam 12/19/2024 12/20/2023 Hemoglobin A1C 04/04/2025 10/03/2024, 05/11, 12/22/2023, Additional history exists Albumin Creatinine Ratio, Urine 06/06/2025 06/06/2024, 12/22/2023, 12/22/2023 Lipid Panel 10/03/2025 10/03/2024, 05/11, 12/22/2023, Additional history exists eGFR 10/03/2025 10/03/2024, 05/11, 12/22/2023, Additional history exists Depression Screening 10/08/2025 10/08/2024, 09/18/2024, 09/26/2023, Additional history exists Regular Well Visit/Exam 18-64 10/08/2025, 09/26/2023, 07/09/2023, Additional history exists Breast Cancer Screening-Mammogram 10/20/2025 10/20/2024, 08/11/2023, 11/04/2021, Additional history exists Colon Cancer Screening-Colonoscopy 08/02/20272022 Cervical Cancer Screening 07/08/2028 07/09/2023, 12/2016 DTaP/Tdap/Td Vaccine (2 - Td or Tdap) 08/08/2028 08/08/2018 Procedures Procedure Name Priority Date/Time Associated Diagnosis Comments SCREENING MAMMOGRAM BILATERAL W MICHEAL Schedule Routine, Read Routine (OP Routine) 10/20/2024 Breast cancer screening by mammogram GA ARTHROCENTESIS ASPIR&/INJ SMALL JT/BURSA W/O US Routine 10/16/2024 10:00 AM CDT Osteoarthritis of carpometacarpal (CMC) joint of right thumb, unspecified osteoarthritis type GA ARTHROCENTESIS ASPIR&/INJ SMALL JT/BURSA W/O US Routine [...] CREATININE RATIO, URINE Routine 06/06/2024 7:22 AM CLERICAL SUPPORT SPECIALIST Type 2 diabetes mellitus without complication, without [...] NEGRON IMG MAMMO PROCEDURES Final Result * GA ARTHROCENTESIS ASPIR&/INJ SMALL JT/BURSA W/O US (10/16/2024 10:00 AM CDT) Ceilo Theodore MD - 10/16/2024 10:00 AM CDT Cielo [...] IN CLINIC/BEDSIDE ORDERAB LES Final Result * GA ARTHROCENTESIS ASPIR&/INJ SMALL JT/BURSA W/O US (10/16/2024 [...] * Vitamin B12 (10/03/2024 9:47 AM CDT) Pathologist [facility] Vitamin B12 321 232 - 1,245 pg/mL [facility] - 01 Blood 10/03/2024 9:47 AM CDT 10/03/2024 Narrative [facility] - 10/04/2024 9:36 AM CDT Performed at: [address] [place] [id number] Flatbed Press Operator: Sg Edward PhD, Phone: [phone] Bree NEGRON LAB BLOOD ORDERABLES Final Result Performing Organization Address [facility] de Phone Number [facility] - * (ABNORMAL) Hemoglobin A1c (10/03/2024 9:46 AM CDT) [facility] Hgb A1C 5.7(H) 4.8 - 5.6 % [facility] - 01 Comment: Prediabetes: 5.7 - 6.4 Diabetes: >6.4 Glycemic control for adults with diabetes: <7.0 Blood 10/03/2024 9:46 AM CDT 10/03/2024 Narrative [facility] - 10/04/2024 7:37 AM CDT Performed at: [address] [place] [id number] Flatbed Press Operator: Sg Edward PhD, Phone: [phone] Bree NEGRON LAB BLOOD ORDERABLES Final Result Performing Organization Address [facility] de Phone Number [facility] - * Lipid panel (10/03/2024 9:46 AM CDT) [...] 10/04/2024 9:36 AM CDT Performed at: - [address] [id number] Flatbed Press Operator: Sg Edward PhD, Phone: [phone] Bree NEGRON LAB BLOOD ORDERABLES Final Result [facility] 01 * (ABNORMAL) Comprehensive metabolic panel (10/03/2024 [...] 10/04/2024 9:36 AM CDT Performed at: - [address] [id number] Flatbed Press Operator: Sg Edward PhD, Phone: [phone] Bree NEGRON LAB BLOOD ORDERABLES Final Result [facility] - 01 * XR Spine Thoracic 3 [...] Negative Ketones, ur, POC Negative Negative Specific [place], POC 1.030 1.003 - 1.030 Blood, ur, POC Negative Negative pH, ur, POC 5.5 5.0 - 8.0 Protein, ur, POC Negative Negative Urobilinogen, urine, POC 0.2 0.2 - 1.0 mg/dL Nitrite, ur, POC Negative Negative Leukocytes, ur, POC Trace(A) Negative Lot Number [id number] Urine 09/18/2024 11:5 7 AM CDT us Bree NEGRON POINT OF CARE TEST ORDERAB LES Final Result * Urine culture Urine, clean voided (09/18/2024 11:47 AM CDT) Pathologist [facility] Urine culture [facility] mary Yanez Comment: CULTURE, URINE, ROUTINE Micro Number: [id number] Test Status: Final Specimen Source: Urine Specimen [...] GENERAL ORDERABLES Final Result Performing Organization Address [facility] Co de Phone Number [facility] [address] [place] [address] * Albumin Creatinine Ratio, Urine (06/06/2024 7:22 AM CLERICAL SUPPORT SPECIALIST) Pathologist [facility] Creatinine ur 213.1 Not Estab. mg/dL [facility] - 01 Microalbumin, ur 8.7 Not Estab. ug/mL [facility] - 01 Microalbumin/cre at ratio 4 0 - 29 mg/g creat [facility] - 01 Comment: Normal: 0 - 29 Moderately increased: 30 - 300 Severely increased: >300 Urine 06/06/2024 7:22 AM CLERICAL SUPPORT SPECIALIST 06/06/2024 Narrative [facility] - 06/07/2024 9:36 AM CLERICAL SUPPORT SPECIALIST Performed at: 01 - [facility] [address] [id number] Flatbed Press Operator: Sg Edward PhD, Phone: [phone] Bree NEGRON LAB URINE ORDERABLES Final Result Performing Organization Address [facility] Co de Phone Number [facility] - 01 * Pap and HPV, reflex to HPV Genotypes (07/09/2023 4:32 PM CDT) [facility] CLINICAL INFORMATION: [facility] Comment:CX CANCER SCREENING LMP [facility] Comment:03/2024 Previous Pap [facility] Comment:INFORMATION NOT PROV IDED Prev. Bx [facility] Comment:INFORMATION NOT PROV IDED SOURCE: [facility] Comment:Cervix, Endocervix Pap, specimen adequacy [facility] Comment: Satisfactory for evaluation. Endocervical/transformation zone component present. HPV interp [facility] Comment: Cytology Results: Negative for intraepithelial lesion or malignancy. COMMENTS [facility] Comment: This Pap test has been evaluated with computer assisted technology. Nurses Educator Que [facility] Comment: MMW, CT(ASCP) CT screening location: [place] [address] [address] [id number] Comment [facility] Comment: EXPLANATORY NOTE: The Pap is [...] High Risk E6/E7 Not Detected NOT DETECTED [facility] /Barbie OcampoAdams County Regional Medical Centershauna ID Comment: Not Detected High Risk HPV types (16,18,31,33,35,39,45,51,52, 56,58,59,66,68) were not detected. Other HPV types which cause anogenital lesions may be present. The significance of the other types of HPV in malignant processes has not been established. Methodology: Real Time PCR Thin prep 07/09/2023 4:32 PM CDT 07/12/2023 6:32 AM CDT us Bree NEGRON LAB CYTOLOGY ORDERABLES Fi nal Result [facility] [address] [place] [phone] [facility] [address] [facility] [address] Ocampo ID * COLONOSCOPY (08/01/2022 8:16 AM CDT) Anatomical Region Laterality Modality Other Narrative Procedure Note Claritza Acevedo MD - 08/01/2022 8:16 AM CDT [facility] END[facility] Patient Name: Ashley Arciniega Procedure Date: 08/01/2022 8:16 AM Date of : 1975 Admit Type: Outpatient Age: 47 Gender: Female Attending MD: Claritza Acevedo M.D. Room: [facility] ENDOSCOPY ROOM 05 Note Status: Finalized Procedure: [...] The scope was passed under direct vision.The [id number] colonoscope was introduced through theanus and advanced [...] On: 08/01/2022 8:16 AM Recognized by the [place] [employer] for promoting quality in endoscopy Claritza Acevedo MD ENDOSCOPY PROCEDURES Final Resul t from Last 3 Months or Most Recently Relevant to Health Maintenance Insurance [facility] CHOICE PLUS [facility] CHOICE PLUS [facility] CHOICE PLUS Care Teams Industrial Maintenance Manager Relationship Specialty Start Date End Date Bree Cruz PA [facility] [address] PCP - General Internal Medicine 08/07/18
--- OUTSIDE RECORDS SUMMARY | 2024-10-25 23:21 | XMS_ITS | Continuity of Care Document ---
Author Organization [facility] Address [address] [facility] [address] [place] [phone] Phone Care Team Providers Care Production Miner Name Role Phone Muehl MPT CMPT, Geovany Unavailable Unavailable Procedures Procedure Date Therapeutic Exercise Therapeutic Activities Therapeutic Exercise Therapeutic Activities Neuromuscular Re-Ed Manual Therapy Therapeutic Exercise THERAPEUTIC ACTIVITIES Neuromuscular Re-Ed MANUAL THERAPY Progress Note THERAPEUTIC EXERCISES NEUROMUSCULAR RE-ED MANUAL THERAPY FUNC ACTIVITY THERAPEUTIC EXERCISES NEUROMUSCULAR RE-ED MANUAL THERAPY FUNC ACTIVITY THERAPEUTIC EXERCISES NEUROMUSCULAR RE-ED MANUAL THERAPY FUNC ACTIVITY THERAPEUTIC EXERCISES NEUROMUSCULAR RE-ED MANUAL THERAPY FUNC ACTIVITY HOT/COLD PACK ELECTRIC STIMULATION UNATT THERAPEUTIC EXERCISES NEUROMUSCULAR RE-ED MANUAL THERAPY FUNC ACTIVITY HOT/COLD PACK ELECTRIC STIMULATION UNATT PT Evaluation Low Complexity THERAPEUTIC EXERCISES HOT/COLD PACK ELECTRIC STIMULATION UNATT Advance Directives Directive Yes / No Effective Date File Name No Information Encounters Encounter Description Practice Location Reason(s) For Visit Diagnoses Date Provider Providers Copied on Encounter [facility], [address], [place], [place], [id number], [place] tel:[phone] [place] No Information August-2 6-201 7 Muehl Geovany. [address] [place] [address], [address], [place], [address], [place]. tel: [phone] [facility] [address], [place], [place], [id number], [place] tel:[phone] [place] No Information August-0 9-201 7 Muehl Geovany. [address] [facility], [address], [place], [address], [place]. tel: [phone] [facility] [address], [place], [place], [address], [place] tel:[phone] [place] No Information Jul-2 7-201 7 Muehl Geovany. [address] [place] [address], [address], [place], [address], [place]. tel: [phone] [facility] [address], [place], [place], [address], [place] tel:[phone] [place] No Information Jul-2 1-201 7 Muehl Geovany. [address] [place] [address], [address], [place], [address], [place]. tel: [phone] [facility] [address], [place], [place], [address], [place] tel:[phone] [place] No Information Jul-1 8-201 7 Muehl Geovany. [address] [place] [address], [address], [place], [address], [place]. tel: [phone] [facility], [place], [place], [address], [place] tel:[phone] [place] No Information Jul-1 4-201 7 Muehl Geovayn. [address] [place] [address], [address], [place], [address], [place]. tel: [phone] [facility] [address] [facility] [address], [place], [place], [id number], tel:[phone] [place] No Information Jul-1 - 7 Avival Geovany. [address] [facility], [facility] [address], [place], [place], [facility], . tel: [phone] [facility] [address] [facility] [address], [place], [place], [address], tel:[phone] [place] No Information Jul-0 7 Avival Geovany. [address] [facility], [facility] [address], [place], [place], [facility], [place]. tel: [phone] [facility] [address] [address], [place], [place], [address], tel:[phone] [place] Pain in left kneeOth symptoms and signs involving the musculoskeletal systemSprain of medial collateral ligament of left knee, subs Apr-0 3201 7 Avival Geovany. [address] [facility], [facility] [address], [place], [place], [facility], [place]. tel: [phone] Family History Family Member Type Diagnosis Age At Onset No Information Payers Payer name Insurance type Covered alliance party ID Inocencio weaver(s) [facility] [id number] [facility] 2017 Social History Type Description Quantity Date Captured Comments Sex Female Smoking Status No Information Chief Complaint And Reason For Visit No Information Reason For Referral Reason For Referral No Information History Of Present Illness Encounter Date Complaint History Of Prese nt Illness No Information Functional Status Date Functional Assessmen t No Information Instructions Date Instruction Additional Infor mation No Information Assessments Type Assessment Date No Information Patient Care Teams Name Effective Dates (start - stop) Status Members No Information
--- OUTSIDE RECORDS SUMMARY | 2024-10-25 23:21 | XMS_ITS | Data Portability ---
Author Organization [facility], Main Office Address [address] [place] [address] Assessment No assessment recorded. Plan of Treatment Reminders Order Date Submit Date Provider Last Modified By Organization Details Last Modified Time Details Appointments None recorded. Lab None recorded. Referral None recorded. Procedures None recorded. Surgeries None recorded. Imaging None recorded. Medication Orders norethindro ne acetate 5 mg tablet 2022 023 [facility], [address] [place] [address], [address], 3 11:52:59 metformin ER 500 mg tablet,exte nded release 24 hr 2022 023 [facility], [address] [place] [address], [address], 3 11:52:59 liothyronin e 5 mcg tablet 2022 023 [facility], [address] [place] [address], [address], 3 11:53:01 Unithroid 137 mcg tablet 2022 023 [facility], [address] [place] [address], [address], 3 11:53:00 Patient TargetsNo targets recorded. Patient InstructionsNo instructions recorded. Reason for Referral None Reported. Results Created Date Observation Date Name Description Value Unit Range Abnormal Flag Note LastModifiedBy Organization Detail LastModifiedTime 03/07/20 22 03/07/2022 [place], [facility] id [facility] [id number] [facility] [address], [place], [address], 06/07/2022 07:36:15 Result Notes None recorded. 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 Active 2022 Not Available [facility] 3 07:30:24 Impaired fasting glycemia 976230298 Active 2022 ABDI Ty, [facility] 3 13:55:59 Vitamin B12 deficiency (non anemic) 81906016 Active 2022 Sue Cuevas MD [address], [facility] [address], [place], [address] , [facility] 3 20:20:08 Uncontrolled type 2 diabetes mellitus 579142894 Active 2022 Sue Cuevas MD [address] [employer], [address], [place], [address] , [employer] 3 20:20:16 Prediabetes 489204992 Active 2022 Sue Cuevas MD [address] [facility], [facility] [address], [place], [address] , [facility] 3 11:52:06 Problem Notes None recorded. Procedures Surgical History Date Name Laterality Status Provider Name and Address Organization Details Recorded Time thyroidectomy completed Not Available [facility] 06/07/2022 07:26:33 Cholecystectomy completed Not Available [facility] 06/07/2022 07:26:33 section completed Not Available [facility] 06/07/2022 07:26:33 Imaging Results None recorded. Procedure Notes None recorded. Medical Equipment None Reported. Allergies No known drug allergies Medications Name Sig Start Date Stop Date Status Note LastModified by Organization Details LastModified Time levothyroxi ne 137 mcg tablet TAKE 1 TABLET BY MOUTH EVERY DAY DIRECTED active Not Available Not Available No t Available prednisone 20 mg tablet TAKE 2 TABLETS BY MOUTH EVERY DAY FOR 5 DAYS 04/07 completed Not Available Not Available Not Available omeprazole 40 mg capsule,del ayed release TAKE 1 CAPSULE BY MOUTH EVERY DAY active Not Available Not Available No t Available liothyronin e 5 mcg tablet TAKE 1 TABLET EVERY DAY BY ORAL ROUTE AROUND THE CLOCK FOR 90 DAYS. active Not Available Not Available No t Available Levoxyl 25 mcg tablet one daily 01/04 completed Not Available Not Available Not Available dexamethaso ne 1 mg tablet take dexa tablet at 10 pm night before 8 am cortisol active Not Available Not Available No t Available neomycin-po lymyxin-dex ameth 3.5 mg/mL-10,00 0 unit/mL-0.1 % eye drops 01/15 completed Not Available Not Available Not Available levothyroxi ne 150 mcg tablet TAKE 1 TABLET BY MOUTH EVERY DAY IN THE MORNING 01/04 completed Not Available Not Available Not Available folic acid 1 mg tablet TAKE 1 TABLET DAILY IN THE MORNING active Not Available Not Available No t Available etodolac 400 mg tablet 01/15 completed Not Available Not Available Not Available cyanocobala min (vit B-12) 1,[address] 1 tablet every day by sublingua l route in the morning for 90 days. active Not Available Not Available No t Available norethindro ne acetate 5 mg tablet TAKE 1 TABLET BY MOUTH DAILY 2022 active Not Available Not Available Not Avai lable Vitamin D2 1,250 mcg (50,000 unit) capsule active Not Available Not Available Not Available metformin ER 500 mg tablet,exte nded release 24 hr Take 1 tablet twice a day by oral route before meals for 90 days. 2022 active Not Available Not Available Not Avai lable amoxicillin 875 mg-potassiu m clavulanate 125 mg tablet TAKE 1 TABLET BY MOUTH TWICE A DAY FOR 10 DAYS 04/07 completed Not Available Not Available Not Available escitalopra m 10 mg tablet TAKE 1 TABLET BY MOUTH EVERY DAY 02/17 completed Not Available Not Available Not Available escitalopra m 20 mg tablet TAKE 1 TABLET BY MOUTH EVERY DAY active Not Available Not Available No t Available metformin ER 500 mg 24 hr tablet,exte nded release (gastric retention) one tablet daily at dinner x 90 days 01/04 completed Not Available Not Available Not Available Tirosint 150 mcg capsule Take 1 capsule every day by oral route in the morning for 90 days. 01/04 completed Not Available Not Available Not Available Tirosint 137 mcg capsule TAKE ONE CAPSULE BY MOUTH EVERY MORNING 01/04 completed Not Available Not Available Not Available Slynd 4 mg (28) tablet Take 1 tablet every day by oral route in the morning for 90 days. 01/04 completed Not Available Not Available Not Available Vitals Date Recorded Body height Body mass index (BMI) Body weight Heart rate Body temperature Systolic And Diastolic Provider Name and Address Organization Details Last Updated DateTime 3 162.56 cm 40.7 kg/m2 946196. 39 g 78 /min 98.2 [degF] 144/102 mm[Hg] Amber Acevedo [place] - [facility] [employer] [facility] 3 11:35:21 Date Recorded Body mass index (BMI) Body height Oxygen saturation Oxygen saturation in Arterial blood by Pulse oximetry Heart rate Body temperature Body weight Systolic And Diastolic Provider Name and Address Organization Details Last Updated DateTime 2 42.7 kg/m2 162.56 cm 97 % 97 % 76 /min 98 [degF] 129039. 5 g 125/90 mm[Hg] Not Available [facility] 3 07:28:19 Date Recorded Body height Oxygen saturation Oxygen saturation in Arterial blood by Pulse oximetry Heart rate Body temperature Systolic And Diastolic Provider Name and Address Organization Details Last Updated DateTime 2 162.56 cm 98 % 98 % 77 /min 97.9 [degF] 135/100 mm[Hg] Not Available [facility] 3 07:28:19 Social History Question Answer Notes LastModified by Organizat ion Details LastModified Time Tobacco Smoking Status Former Smoker Not Available [facility] 06/07/2022 07:26:17 What Is Your Level Of Caffeine Consumption? Occasional [id number] Information not available 06/07/2022 What Type Of Diet Are You Following? REGULAR [id number] Information not available 06/07/2022 How Many Days Of Moderate To Strenuous Exercise, Like A Brisk Walk, Did You Do In The Last 7 Days? 1 [id number] Information not available 06/07/2022 When Did You Quit Smoking? 11-15yearssinc elastcigarette [id number] Information not available 06/07/2022 What Is Your Relationship Status? [id number] Information not available 06/07/2022 Do You Have Any Dietary Restrictions? No [id number] Information not available 06/07/2022 Sex: Female Functional Status Question Answer Note LastModified by Organizat ion Details LastModified Time Do you or have you ever used any other forms of tobacco or nicotine? No [id number] Information not available 06/07/2022 What is your level of alcohol consumption? 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 Occasional [id number] Information not available 06/07/2022 Mental Status None recorded. Family History Relationship Description Onset Age of this Age Resolved Age Notes LastModified by Organization Details LastModified Time Father Malignant tumor of colon [id number] Not available 06/07/2022 07:26:35 Mother Malignant tumor of breast [id number] Not available 06/07/2022 07:26:35 Medical History Condition Response INSOMNIA Y EYE PROBLEMS Y HYPOTHYROIDISM Y DEPRESSION (INCLUDING POST ) Y OBESITY Y GERD/NAUSEA Y EXCESSIVE PERSPIRATION Y Gynecological HistoryNo gynecological history recorded. Obstetrics History GPAL:G 0 P 0 0 0 0 Past Encounters Encounter ID Performer Location Encounter Start Date Encounter Closed Date Diagnosis/Indication Diagnosis SNOMED-CT Code Diagnosis ICD10 Code Diagnosis Note [id number] MD MISAEL [facility] [place] [address] [place] [address] 02/17/2022 00:00:00 02/17/2022 20:11:32 [id number] MD MISAEL [facility] [place] [address] [place] [address] 04/07/2022 00:00:00 04/07/2022 10:34:35 [id number] MD MISAEL Flores [facility] [place] [address] [place] [id number] 01/04/2023 11:11:31 01/04/2023 12:01:25 Hypothyroidism 04631205 E03.9 FT4 high range- due to weight loss would recommend we drop her and transition off LT4 to unithroid 137 mcg daily for better consistenc y and continue LT3 5 mcg twice daily. She was reminded to take her unithroid on empty stomach with glass of water and wait one hour to eat or have her coffee in morning and up to 4 hours if ever taking any heartburn or reflux medication s to help optimize absorption . Discussed paleo like diet with restrictio n of GMOs to help with energy and to optimize absorption of vitamins and minerals and reduce inflammati on. Prediabetes 344198544 R7 3.03 A1C of 6% - continue on metformin twice daily with meals. Recommende d 35/35/30 (protein/f at/carb) diet-recom mended up to 90 grams of carbs a day split into 6 small 15-20 gram carb meals in addition to up to 120 grams of protein daily split into 20-25 grams for 5-6 smaller meals. The recommende d diet should be one of which she can incorporat e on a daily basis that will not modulate her lifestyle - discussed a diet of increased fiber; decreased refined carbohydra shi, trans fats, and saturated fats with focus on monounsatu rated fats such as unprocesse d chicken, turkey, nuts (excluding peanuts) and beans. Perimenopa usal disorder 338837991 N95.9 Continue on progestero ne therapy as she has had improvemen t in mood and sleep. Spent up to 25 minutes preparing to see the patient (eg, review of tests), obtaining and/or reviewing separately obtained history, performing a medically appropriat e examinatio n and evaluation , counseling and educating the patient, ordering medication s, tests, along with documentin g clinical informatio n in the electronic health record, independen tly interpreti ng results and communicat ing results to the patient. Patient can be followed by PCP - she/he is aware of my resignatio n and last day of January 19. If needed his/her PCP can refer patient to another endocrinol ogist in the area. All questions /concerns answered and refills necessary at visit today. Health Concerns Section Related Observation LastModified by Organization Detai ls LastModified Time None Recorded Concern Status LastModified by Organization Details LastModified Time None Recorded Advance Directives Directive None Recorded Payers Insurance Date Sequence Insurance Name Policy Number Policy Julian Covered Member ID Julian Member ID Guarantor Name 01/01/2023 1 [facility] [id number] Ashley Arciniega [id number] Ashley Arciniega Notes Date Note Type Note Provider Name and Address Organization Details Recorded Time 01/04/2023 text/html 47 yo female com es in for follow up in management of hypothyroidism, perimenopausal symptoms, impaired fasting glucose / prediabetes (A1C of 6%) and B12 def. last seen in Mar at that time we continued tirosint 150 mcg daily along with T3 twice daily. insurance will not cover tirosint so patient has been on generic forms of LT4. we continued B12 supplementation. we trialed on slynd and metformin. She is taking B12 by mouth. She has lost 12 pounds and maintained. She has better energy overall. labs from 12/30:TSH of 0.079 uIU/mlFT4 of 1.45 ng/dLglucose 98 mg/dLCr normalLFT [id number] 6%Ft3 of 3.0 pg/ML Sue Cuevas MD [address] [facility], [address] [address], [place], [address], [facility] [employer] 01/04/2023 13:51:40 OBGyn Episode No OBEpisode recorded.
[2024-10-25 23:27] VITALS: BP 139/86; PULSE 81; RESP 18; TEMP 36.3; O2SAT 97
[2024-10-26 01:23] VITALS: BP 136/92; PULSE 77; RESP 16; O2SAT 99
--- NOTE | 2024-10-26 01:25 | PC.NURSE ---
Pt presents to ED due to GLF, per pt tripped on a towel and hit edge of pool. Pt has a laceration to bottom lip. Pt states she had a few drinks today, -HS, - LOC, denies n/v and denies vision changes. [place] [facility]
--- NOTE | 2024-10-26 03:03 | ED.WOUNDLAC ---
HPI - Wound/Laceration General Chief Complaint: Wound/Laceration Stated Complaint: fell down basement steps Time Seen by Provider: 10/26/24 02:32 History of Present Illness HPI narrative: 49-year-old female with no pertinent past medical history presenting with a lower lip laceration. She states she tripped and fell over tile on her stairs. Did not hit her head or lose consciousness. Bleeding is controlled. Has had tetanus up-to-date. No other appreciable injuries. No loss of consciousness or blood thinner use. She has a small laceration to the inferior portion of the right lip going towards the vermilion border but not crossing. No other appreciable injuries. Related Data Allergies Allergy/AdvReac Type Severity Reaction Status Date / Time No Known Allergies Allergy Unverified 02/22/15 12:41 Review of Systems Review of Systems: [facility] Family History Family History Mother Hypertension Cerebrovascular accident Family history of malignant neoplasm of breast in first degree relative Father Asthma Carcinoma of colon Social History Social History Smoking status: Former smoker Smoking end date: 04/09/04 Alcohol intake: current Exam Narrative: GENERAL: [Well-appearing, well-nourished, and in no acute distress.] HEAD: [Normocephalic, atraumatic.] EYES: [PERRLA and EOMI.] ENT: Small curvilinear laceration to the inferior portion of the right-sided lower lip sparing the vermilion border. No intraoral lesions or active bleeding. NECK: Supple. CHEST: [Clear to auscultation. No respiratory distress.] HEART: [Regular rate and rhythm]. No murmur heard. [Normal peripheral pulses.] ABDOMEN: [Soft, nondistended], [nontender], [No rigidity or guarding] EXTREMITIES: Normal range of motion. [No edema.] SKIN: Warm, dry, no rash. NEURO: [No focal deficits]. Alert and oriented [x3.] PSYCH: [Normal mood and affect.] Course Vital Signs Vital signs: Vital Signs Temperature 36.3 C L 10/25/24 23:27 Pulse Rate 81 07/19/25 23:27 Respiratory Rate 18 10/25/24 23:27 Blood Pressure 139/86 10/25/24 23:27 Pulse Oximetry 97 10/25/24 23:27 Oxygen Delivery Room Air 10/25/24 23:27 Temperature 36.3 C L 10/25/24 23:27 Pulse Rate 77 10/26/24 01:23 Respiratory Rate 16 10/26/24 01:23 Blood Pressure 136/92 H 10/26/24 01:23 Pulse Oximetry 99 10/26/24 01:23 Oxygen Delivery Room Air 10/25/24 23:27 Procedures Laceration Laceration 1: Date: 10/26/24 Time: 03:53 Site: lip Side (If applicable): right Size (cm): 1.0 Description: linear and clean Depth: simple, single layer Local Anesthetic: lidocaine 1% (Let gel) Amount of anesthesia used (mL): 3 Pre-repair: wound explored, irrigated and deep structures intact ====== Skin Level ====== Skin layer closed with: vicryl Size (cm): 5-0 Number of sutures: 5 Technique: simple, interrupted ====== Subcutaneous Layer ====== ====== Muscle Layer ====== ====== Tendon Layer ====== MDM - Wound/Laceration MDM Narrative Medical decision making narrative: 49-year-old female with no pertinent past medical history presenting with a lower lip laceration. She states she tripped and fell over tile on her stairs. Did not hit her head or lose consciousness. Bleeding is controlled. Has had tetanus up-to-date. No other appreciable injuries. No loss of consciousness or blood thinner use. She has a small laceration to the inferior portion of the right lip going towards the vermilion border but not crossing. No other appreciable injuries. Topical let gel was used for topical anesthesia for good wound approximation. Laceration repaired in simple interrupted fashion without any complication. Patient tolerated procedure well and safe for discharge home at this time. Discharge Plan Discharge Clinical Impression: Laceration of lip Patient Disposition: Home Condition: Stable Instructions: Antibiotic Form, Care For Your Stitches (ED), Laceration (ED) Additional Instructions: Stitches should remain for approximately 10 days and then they need to be removed. They are absorbable but the absorption time takes longer than the recommended duration that they should remain and lip. Follow-up with your regular primary care provider. Return with any emergent concerns or signs of infection. You can return to the emergency center, urgent care or your regular doctor to have the stitches removed. Patient Language: Congolese Follow-up/Referrals: Nancy,MIGDALIA Giron [Primary Care Provider] - Time of Disposition: 03:54
--- OUTSIDE RECORDS SUMMARY | 2024-10-26 03:11 | XMS_ITS | Encounter Summary ---
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
--- OUTSIDE RECORDS SUMMARY | 2024-10-26 03:11 | XMS_ITS | Encounter Summary ---
Author Organization [facility] Healthcare Address [address] [place] [address] Care Team Providers Care Twitchell Operator Name Role Phone Bree Cruz Primary Care Provider +1- [phone] Reason for Visit * Reason Onset Date Comments Medical Question/Miscellaneous 10/01/2024 Encounter Details Date Type Department Care Team (Late st Contact Info) Description 10/01/2024 Telephone [facility] Medical Group Family Medicine [address] [place] [address] Bree Cruz PA [address] [place] [address] Medical Question/Miscellaneous Social History Tobacco [...] on file Legal 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 [address] PCP - General Internal Medicine 08/07/18 documented as of this encounter
--- OUTSIDE RECORDS SUMMARY | 2024-10-26 03:11 | XMS_ITS | Clinical Summary ---
Author Organization [facility] Address [address] [place] [address] Care Team Providers Care Piecer Up Name Role Phone Unavailable Primary Care Provider [...]
--- OUTSIDE RECORDS SUMMARY | 2024-10-26 03:11 | XMS_ITS | Continuity of Care Document ---
Author Organization [facility] Address [address] [place] [address] Phone Care Team Providers Care Aircraft Sheet Metal Mechanic Name Role Phone Muehl MPT CMPT, Geovany [...] Date Provider Providers Copied on Encounter [facility], [address], [place], [place], [id number], [place] tel:[phone] [place] No Information August-2 6-201 7 Muehl Geovany. [address] [place] [address], [address], [place], [address], [place]. tel: [phone] [facility] [address], [place], [place], [id number], [place] tel:[phone] [place] No Information August-0 9-201 7 Muehl Geovany. [address] [facility], [address], [place], [address], [place]. tel: [phone] [facility] [address], [place], [place], [id number], [place] tel:[phone] [place] No Information Jul-2 7-201 7 Muehl Geovany. [address] [place] [address], [address], [place], [address], [place]. tel: [phone] [facility] [address], [place], [place], [id number], [place] tel:[phone] [place] No Information Jul-2 1-201 7 Muehl Geovany. [address] [place] [address], [address], [place], [address], [place]. tel: [phone] [facility] [address], [place], [place], [id number], [place] tel:[phone] [place] No Information Jul-1 8-201 7 Muehl Geovany. [address] [place] [address], [address], [place], [address], [place]. tel: [phone] [facility], [place], [place], [id number], [place] tel:[phone] [place] No Information Jul-1 4-201 7 Muehl Geovany. [address] [place] [address], [address], [place], [address], [place]. tel: [phone] [facility] [address] [facility] [address], [place], [place], [id number], tel:[phone] [place] No Information Jul-1 - 7 Avival Geovany. [address] [facility], [facility] [address], [place], [place], [facility], . tel: [phone] [facility] [address] [facility] [address], [place], [place], [id number], tel:[phone] [place] No Information Jul-0 7 Avival Geovany. [address] [facility], [facility] [address], [place], [place], [facility], [place]. tel: [phone] [facility] [address] [address], [place], [place], [id number], tel:[phone] [place] Pain in left kneeOth symptoms and signs involving the musculoskeletal systemSprain of medial collateral ligament of left knee, subs Apr-0 3201 7 Avival Geovany. [address] [facility], [facility] [address], [place], [place], [facility], [place]. tel: [phone] Family History Family Member Type Diagnosis Age At Onset No Information Payers Payer name Insurance type Covered republican ID Inocencio weaver(s) [facility] [place] [id number] [facility] 2017 Social History Type Description Quantity Date [...]
--- OUTSIDE RECORDS SUMMARY | 2024-10-26 03:11 | XMS_ITS | Clinical Summary ---
Author Organization [facility] [address] [facility] Address [address] [place] [address] Care Team Providers Care Rf Manager Name Role Phone Bree Cruz Primary Care Provider +1- [phone] Allergies No known active allergies Medications cetirizine [...] of continued A1c control to minimize the shelter effects of diabetes. Bring accuchecks to office [...] Will update labs. [facility] Aware to check results/results letter in [facility]. Will contact by phone if needed. DM [...] The patient to send a message via [facility] in 4 to 6 weeks to see [...] pharmacy Assessment & Plan (05/13/2023 8:35 PM CUTTING TOOL SHARPENER): Continue Lexapro 20 Assessment & Plan (10/01/2022 [...] symptoms. Assessment & Plan (05/01/2021 6:27 PM CUTTING TOOL SHARPENER): Patient has tolerated the Lexapro 10 without [...] update TFTs today. Verified that she uses [facility]. Aware to check results/results letter in [facility]. Will contact by phone if needed. Assessment & Plan (09/26/2023 10:43 AM CDT): Continue levothyroxine. Managed by Dr. Contreras Assessment & Plan (08/13/2023 12:28 PM CDT): Chronic, probably over replaced Update TFTs Will adjust dose of medication, probably stopped Cytomel and continue with levothyroxine Assessment & Plan (05/13/2023 8:35 PM CUTTING TOOL SHARPENER): History of hypothyroidism. Was managed by Dr. Cuevas but she is moved out of the area. Would like to establish with a new journeyman plumber. Recommend the [facility] Endocrine group at [place]. Will make referral. She has all of [...] Reviewed immunizations Reviewed age appropirate screenings. Plans [facility] followup with [facility] Vitamin D deficiency 08/08/2018 Assessment & Plan (10/18/2024 11:27 PM CDT): Supplement Assessment & Plan (09/26/2023 10:43 AM CDT): Supplement Assessment & Plan (05/13/2023 8:34 PM CUTTING TOOL SHARPENER): Supplement Assessment & Plan (09/17/2021 2:50 PM [...] symptoms. Assessment & Plan (05/13/2023 8:35 PM CUTTING TOOL SHARPENER): Continue omeprazole p.r.n. Assessment & Plan (10/01/2022 [...] 025 Assessment & Plan (05/13/2023 8:38 PM CUTTING TOOL SHARPENER): Flu vaccine updated in the office today Bilateral thumb pain 05/13/2023 025 Assessment & Plan (07/15/2023 9:05 PM CDT): Bilateral thumb pain. Has tried Mobic and did not notice much change. Will refer to Dr. Eldridge for further evaluation Assessment & Plan (05/13/2023 8:38 PM CUTTING TOOL SHARPENER): Patient notes bilateral thumb pain. No know [...] provided. Assessment & Plan (05/13/2023 8:35 PM CUTTING TOOL SHARPENER): Discussed the patient's BMI. The BMI is [...] management. Assessment & Plan (05/02/2023 7:47 AM CUTTING TOOL SHARPENER): Discussed the patient's BMI. The BMI is [...] 2 brochures that are published by the [place] regarding understanding insomnia [...] 10/18/2024 Assessment & Plan (05/13/2023 8:35 PM CUTTING TOOL SHARPENER): Pre-diabetes/hyperglycemia is a precursor to Dm. Stressed [...] monitor. She will discuss further with her journeyman plumber that we set her up with at [facility] Assessment & Plan (10/01/2022 8:35 PM [...] Department Care Team Description 10/21/2024 Orders Only [facility] Medicine [address] [place] [phone] Bree Cruz PA Abnormal mammogram (Primary Dx) 10/21/2024 Results Follow-Up [facility] Medicine [address] [place] [address] [address] [place] [address] Bree Cruz PA Screening Mammogram Bilateral W Micheal 10/16/2024 10:00 AM CDT Office Visit [facility] Hand Surgery [address] [place] [address] [place] [phone] Cielo Eldridge MD Osteoarthritis of carpometacarpal (CMC) joint of left thumb, unspecified osteoarthritis type (Primary Dx); Osteoarthritis of carpometacarpal (CMC) joint of right thumb, unspecified osteoarthritis type 10/08/2024 9:00 AM CDT Office Visit [address] [place] [address] Bree Cruz PA Annual physical exam (Primary Dx); Hyperlipidemia associated with type 2 diabetes mellitus (HCC); Controlled type 2 diabetes mellitus without complication, without long-term current use of insulin (HCC); Situational anxiety; Acquired hypothyroidism; Vitamin D deficiency; Gastroesophageal reflux disease without esophagitis; Breast cancer screening by mammogram; Immunity status testing; Morbid obesity (HCC); BMI 39.0-39.9,adult 10/06/2024 Telephone [facility] Diabetes and Endocrinology [address] [place] [phone] Ruby Diaz NP Med Refill (Levothyroxine) 10/04/2024 Results Follow-Up [address] [place] [address] Bree Cruz PA Hemoglobin A1c, Comprehensive metabolic panel, Lipid panel, Vitamin B12 10/03/2024 Telephone [facility] Endocr[facility]ology [address] [place] [phone] Ruby Diaz, YASIR Prior Auth (Ozempic) 10/01/2024 Orders Only [address] [place] [address] Bree Cruz PA Controlled type 2 diabetes mellitus without complication, without long-term current use of insulin (HCC) (Primary Dx) 10/01/[address] [place] [phone] Bree Cruz PA Medical Question/Miscellaneous 09/30/2024 Telephone [facility] [address] [address] Ruby Diaz NP Med Refill 09/20/2024 Results Follow-Up [address] [address] Bree Cruz PA POCT urinalysis dipstick, Urine culture Urine, clean voided, XR Spine Thoracic 3 Vw 09/18/2024 11:30 AM CDT Office Visit [address] [address] Bere Cruz PA Chronic left-sided thoracic back pain (Primary Dx); Primary osteoarthritis of both hands; BMI 40.0-44.9, adult ([facility]); Obesity, morbid, BMI 40.0-49.9 (HCC) 09/18/2024 Nurse Triage [address] [place] [phone] Doris Spence RN from Last 3 Months Immunizations Immunization Administration Dates Next Due Influenza, Quadrivalent, Spl it, Preservative Free, Intramuscular 05/02/2023 Influenza, Unspecified 04/09/2024(Deferr ed: Patient Refused),05/10/2021(Deferred: Patient Refused),05/10/2021(Deferred: Patient Refused),04/09/2020(Deferred: Patient Refused),06/26/2019(Deferred: Patient Refused) Pfizer SARS-CoV-2 Monovalent Vaccination (12+ Yrs) PURPLE 06/17/2020,05/20/2020 Tdap 08/08/2018 Surgical History Surgery Date Site/Laterality Comments THYROID SURGERY SECTION [id number] CHOLECYSTECTOMY [id number] [id number] Medical History Medical History Date Comments COVID-19 [...] on file Legal Sex Female 8:43 PM CUTTING TOOL SHARPENER Gender Identity Not on file Sexual Orientation Not on file 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 Not on file Not on file Not [...] Routine) 10/20/2024 Breast cancer screening by mammogram AK ARTHROCENTESIS ASPIR&/INJ SMALL JT/BURSA W/O US Routine 10/16/2024 10:00 AM CDT Osteoarthritis of carpometacarpal (CMC) joint of right thumb, unspecified osteoarthritis type AK ARTHROCENTESIS ASPIR&/INJ SMALL JT/BURSA W/O US Routine [...] CREATININE RATIO, URINE Routine 06/06/2024 7:22 AM CUTTING TOOL SHARPENER Type 2 diabetes mellitus without complication, without [...] NEGRON IMG MAMMO PROCEDURES Final Result * AK ARTHROCENTESIS ASPIR&/INJ SMALL JT/BURSA W/O US (10/16/2024 10:00 AM CDT) Cielo Theodore MD - 10/16/2024 10:00 AM CDT [...] IN CLINIC/BEDSIDE ORDERAB LES Final Result * AK ARTHROCENTESIS ASPIR&/INJ SMALL JT/BURSA W/O US (10/16/2024 [...] Vitamin B12 (10/03/2024 9:47 AM CDT) Pathologist [facility] Vitamin B12 321 232 - 1,245 pg/mL [facility] - 01 Blood 10/03/2024 9:47 AM CDT 10/03/2024 Narrative [facility] - 10/04/2024 9:36 AM CDT Performed at: [address] [place] [id number] Taco Maker: Sg Edward PhD, Phone: [phone] Bree NEGRON LAB BLOOD ORDERABLES Final Result Performing Organization Address [facility] de Phone Number [facility] - * (ABNORMAL) Hemoglobin A1c (10/03/2024 9:46 AM CDT) [facility] Hgb A1C 5.7(H) 4.8 - 5.6 % [facility] - 01 Comment: Prediabetes: 5.7 - 6.4 Diabetes: >6.4 Glycemic control for adults with diabetes: <7.0 Blood 10/03/2024 9:46 AM CDT 10/03/2024 Narrative [facility] - 10/04/2024 7:37 AM CDT Performed at: [address] [place] [id number] Taco Maker: Sg Edward PhD, Phone: [phone] Bree NEGRON LAB BLOOD ORDERABLES Final Result Performing Organization Address [facility] de Phone Number [facility] - * [...] 10/04/2024 9:36 AM CDT Performed at: - [address] [place] [address] [id number] Taco Maker: Sg Edward PhD, Phone: [phone] Bree NEGRON LAB BLOOD ORDERABLES Final Result [...] 10/04/2024 9:36 AM CDT Performed at: - [address] [id number] Taco Maker: Sg Edward PhD, Phone: [phone] Bree NEGRON LAB BLOOD ORDERABLES Final Result [facility] - 01 * XR Spine Thoracic 3 [...] Negative Ketones, ur, POC Negative Negative Specific [place], POC 1.030 1.003 - 1.030 Blood, ur, POC Negative Negative pH, ur, POC 5.5 5.0 - 8.0 Protein, ur, POC Negative Negative Urobilinogen, urine, POC 0.2 0.2 - 1.0 mg/dL Nitrite, ur, POC Negative Negative Leukocytes, ur, POC Trace(A) Negative Lot Number [id number] Urine 09/18/2024 11:5 7 AM CDT us Bree NEGRON POINT OF CARE TEST ORDERAB LES Final Result * Urine culture Urine, clean voided (09/18/2024 11:47 AM CDT) Pathologist [facility] Urine culture [employer] mary Yanez Comment: CULTURE, URINE, ROUTINE Micro Number: [id number] Test Status: Final Specimen Source: Urine Specimen [...] GENERAL ORDERABLES Final Result Performing Organization Address [facility] Co de Phone Number [facility] [address] [place] [address] * Albumin Creatinine Ratio, Urine (06/06/2024 7:22 AM CUTTING TOOL SHARPENER) Pathologist [facility] Creatinine ur 213.1 Not Estab. mg/dL [facility] - 01 Microalbumin, ur 8.7 Not Estab. ug/mL [facility] - 01 Microalbumin/cre at ratio 4 0 - 29 mg/g creat [facility] - 01 Comment: Normal: 0 - 29 Moderately increased: 30 - 300 Severely increased: >300 Urine 06/06/2024 7:22 AM CUTTING TOOL SHARPENER 06/06/2024 Narrative [facility] - 06/07/2024 9:36 AM CUTTING TOOL SHARPENER Performed at: 01 - [facility] [address] [id number] Taco Maker: Sg Edward PhD, Phone: [phone] Bree NEGRON LAB URINE ORDERABLES Final Result Performing Organization Address [facility] Co de Phone Number [facility] - 01 * Pap and HPV, reflex to HPV Genotypes (07/09/2023 4:32 PM CDT) [facility] CLINICAL INFORMATION: [employer] [facility] Comment:CX CANCER SCREENING LMP [facility] Comment:03/2024 Previous Pap [facility] Comment:INFORMATION NOT PROV IDED Prev. Bx [facility] Comment:INFORMATION NOT PROV IDED SOURCE: [facility] Comment:Cervix, Endocervix Pap, specimen adequacy [facility] Comment: Satisfactory for evaluation. Endocervical/transformation zone component present. HPV interp [facility] Comment: Cytology Results: Negative for intraepithelial lesion or malignancy. COMMENTS [facility] Comment: This Pap test has been evaluated with computer assisted technology. 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 Other HPV types which cause anogenital lesions may be present. The significance of the other types of HPV in malignant processes has not been established. Methodology: Real Time PCR Thin prep 07/09/2023 4:32 PM CDT 07/12/2023 6:32 AM CDT us Bree NEGRON LAB CYTOLOGY ORDERABLES Fi nal Result [facility] [address] [address] [place] [phone] [employer]/[facility] [address] [facility] [address] [place]camp[place] * COLONOSCOPY (08/01/2022 8:16 AM CDT) Anatomical Region Laterality Modality Other Narrative Procedure Note Claritza Acevedo MD - 08/01/2022 8:16 AM CDT [facility] Patient Name: Ashley Arciniega Procedure Date: 08/01/2022 8:16 AM Date of : 1975 Admit Type: Outpatient Age: 47 Gender: Female Attending MD: Claritza Acevedo M.D. Room: [facility] ENDOSCOPY ROOM 05 Note Status: Finalized Procedure: [...] The scope was passed under direct vision.The CF-[id number] colonoscope was introduced through theanus and advanced [...] On: 08/01/2022 8:16 AM Recognized by the [employer] for promoting quality in endoscopy Claritza Acevedo MD ENDOSCOPY PROCEDURES Final Resul t from Last 3 Months or Most Recently Relevant to Health Maintenance Insurance [employer] Care Teams Rf Manager Relationship Specialty Start Date End Date Bree Cruz PA [facility] [address] [address] PCP - General Internal Medicine 08/07/18
--- OUTSIDE RECORDS SUMMARY | 2024-10-26 03:11 | XMS_ITS | Encounter Summary ---
Author Organization [facility] Healthcare Address [address] [place] [address] Care Team Providers Care Commercial Roofer Name Role Phone Bree Cruz Primary Care Provider +1- [phone] Reason for Visit * Reason Onset Date Comments Test Results 10/21/2024 Encounter Details Date Type Department Care Team (Late st Contact Info) Description 10/21/2024 Results Follow-Up [facility] Medical Group Family Medicine [address] [place] [address] Bree Cruz PA [address] [place] [address] Screening Mammogram Bilateral W Micheal [...] on file Legal Sex Female 8:43 PM CARPET INSPECTOR Gender Identity Not on file Sexual Orientation Not on file 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
--- OUTSIDE RECORDS SUMMARY | 2024-10-26 03:11 | XMS_ITS | Referral Summary ---
Author Organization [facility] [address] [place] [address] [place] [phone] Care Team Providers Care Firer Boiler Name Role Phone Bree Cruz Primary Care Provider +1- [phone] Encounters Date Type Department Care Team Description 10/21/2024 Orders Only [facility] Medicine [address] [place] [address] [place] [phone] Bree Cruz PA Abnormal mammogram (Primary Dx) 10/21/2024 Results Follow-Up [address] [place] [phone] Bree Cruz PA Screening Mammogram Bilateral W Micheal 10/16/2024 10:00 AM CDT Office Visit [facility] Hand Surgery [address] [place] [address] [place] [phone] Cielo Eldridge MD Osteoarthritis of carpometacarpal (CMC) joint of left thumb, unspecified osteoarthritis type (Primary Dx); Osteoarthritis of carpometacarpal (CMC) joint of right thumb, unspecified osteoarthritis type 10/08/2024 9:00 AM CDT Office Visit [address] [place] [phone] Bree Cruz PA Annual physical exam (Primary Dx); Hyperlipidemia associated with type 2 diabetes mellitus (HCC); Controlled type 2 diabetes mellitus without complication, without long-term current use of insulin (HCC); Situational anxiety; Acquired hypothyroidism; Vitamin D deficiency; Gastroesophageal reflux disease without esophagitis; Breast cancer screening by mammogram; Immunity status testing; Morbid obesity (HCC); BMI 39.0-39.9,adult 10/06/2024 Telephone [facility] Diabetes and Endocrinology [address] [place] [phone] Ruby Diaz, YASIR Med Refill (Levothyroxine) 10/04/2024 Results Follow-Up [address] [address] Bree Cruz PA Hemoglobin A1c, Comprehensive metabolic panel, Lipid panel, Vitamin B12 10/03/2024 Telephone [facility] Diabetes and Endocrinology [address] [place] [phone] Ruby Diaz NP Prior Auth (Ozempic) 10/01/2024 Orders Only [address] [address] Bree Cruz PA Controlled type 2 diabetes mellitus without complication, without long-term current use of insulin (HCC) (Primary Dx) 10/01/[address] [address] Bree Cruz PA Medical Question/Miscellaneous 09/30/2024 Telephone [facility] [address] [phone] Ruby Diaz, YASIR Med Refill 09/20/2024 Results Follow-Up [address] [address] Bree Cruz PA POCT urinalysis dipstick, Urine culture Urine, clean voided, XR Spine Thoracic 3 Vw 09/18/2024 11:30 AM CDT Office Visit [address] [address] Bree Cruz PA Chronic left-sided thoracic back pain (Primary Dx); Primary osteoarthritis of both hands; BMI 40.0-44.9, adult (HCC); Obesity, morbid, BMI 40.0-49.9 (HCC) 09/18/2024 Nurse Triage [facility] Family Medicine [address] [facility] [address] [place] [address] Doris Spence RN from Last [...] complication, without long-term current use of insulin ([facility]) Inject 0.5 mg under the skin once [...] complication, without long-term current use of insulin ([facility]) Take 2 tablets (1,000 mg total) by [...] mychart. Aware to check results/results letter in Sir[employer]. Will contact by phone if needed. DM [...] The patient to send a message via Stion in 4 to 6 weeks to see [...] water pressure. Denied need for supplies. SELIN cMkeon Family history of colon cancer in father [...] pharmacy Assessment & Plan (05/13/2023 8:35 PM DIGITAL ADVERTISING SPECIALIST): Continue Lexapro 20 Assessment & Plan [...] symptoms. Assessment & Plan (05/01/2021 6:27 PM DIGITAL ADVERTISING SPECIALIST): Patient has tolerated the Lexapro 10 [...] levothyroxine Assessment & Plan (05/13/2023 8:35 PM DIGITAL ADVERTISING SPECIALIST): History of hypothyroidism. Was managed by Dr. Cuevas but she is moved out of the area. Would like to establish with a new health concierge. Recommend the [facility] Endocrine group at [place]. Will make referral. She has all of [...] Reviewed immunizations Reviewed age appropirate screenings. Plans PSYCHOLOGIST DEVELOPMENTAL followup with PSYCHOLOGIST DEVELOPMENT[facility] Vitamin D deficiency 08/08/2018 Assessment & Plan (10/18/2024 11:27 PM CDT): Supplement Assessment & Plan (09/26/2023 10:43 AM CDT): Supplement Assessment & Plan (05/13/2023 8:34 PM DIGITAL ADVERTISING SPECIALIST): Supplement Assessment & Plan (09/17/2021 2:50 [...] symptoms. Assessment & Plan (05/13/2023 8:35 PM DIGITAL ADVERTISING SPECIALIST): Continue omeprazole p.r.n. Assessment & Plan [...] 025 Assessment & Plan (05/13/2023 8:38 PM DIGITAL ADVERTISING SPECIALIST): Flu vaccine updated in the office today Bilateral thumb pain 05/13/2023 025 Assessment & Plan (07/15/2023 9:05 PM CDT): Bilateral thumb pain. Has tried Mobic and did not notice much change. Will refer to Dr. Eldridge for further evaluation Assessment & Plan (05/13/2023 8:38 PM DIGITAL ADVERTISING SPECIALIST): Patient notes bilateral thumb pain. No [...] provided. Assessment & Plan (05/13/2023 8:35 PM DIGITAL ADVERTISING SPECIALIST): Discussed the patient's BMI. The BMI [...] management. Assessment & Plan (05/02/2023 7:47 AM DIGITAL ADVERTISING SPECIALIST): Discussed the patient's BMI. The BMI [...] 2 brochures that are published by the [place] [employer] regarding understanding insomnia [...] 10/18/2024 Assessment & Plan (05/13/2023 8:35 PM DIGITAL ADVERTISING SPECIALIST): Pre-diabetes/hyperglycemia is a precursor to Dm. [...] monitor. 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 Not on file Not on file [...] Routine) 10/20/2024 Breast cancer screening by mammogram MS ARTHROCENTESIS ASPIR&/INJ SMALL JT/BURSA W/O US Routine 10/16/2024 10:00 AM CDT Osteoarthritis of carpometacarpal (CMC) joint of right thumb, unspecified osteoarthritis type MS ARTHROCENTESIS ASPIR&/INJ SMALL JT/BURSA W/O US Routine [...] CREATININE RATIO, URINE Routine 06/06/2024 7:22 AM DIGITAL ADVERTISING SPECIALIST Type 2 diabetes mellitus without complication, [...] NEGRON IMG MAMMO PROCEDURES Final Result * MS ARTHROCENTESIS ASPIR&/INJ SMALL JT/BURSA W/O US (10/16/2024 10:00 AM CDT) Narrative Cielo Eldridge MD - 10/16/2024 10:00 AM CDT Cielo Eldridge MD 10/17/2024 6:33 AM Small Joint (Foot, Fingers, Toes) Injection: L thumb CMC Performed by: Cielo Eldridge MD Authorized by: Ceilo Eldridge MD Small Joint Injection/Aspiration: Consent Given [...] IN CLINIC/BEDSIDE ORDERAB LES Final Result * MS ARTHROCENTESIS ASPIR&/INJ SMALL JT/BURSA W/O US (10/16/2024 [...] * Vitamin B12 (10/03/2024 9:47 AM CDT) [facility] Vitamin B12 321 232 - 1,245 pg/mL [facility] - Blood 10/03/2024 9:47 AM CDT 10/03/2024 Narrative [facility] - 10/04/2024 9:36 AM CDT Performed at: [address] [id number] Acoustical Material Worker: Sg Edward PhD, Phone: [phone] Bree NEGRON LAB BLOOD ORDERABLES Final Result Performing Organization Address [facility] Co de Phone Number LABCO [facility] * (ABNORMAL) Hemoglobin A1c (10/03/2024 9:46 AM CDT) [facility] Hgb A1C 5.7(H) 4.8 - 5.6 % [facility] - Comment: Prediabetes: 5.7 - 6.4 Diabetes: >6.4 Glycemic control for adults with diabetes: <7.0 Blood 10/03/2024 9:46 AM CDT 10/03/2024 Narrative [facility] - 10/04/2024 7:37 AM CDT Performed at: [address] [id number] Acoustical Material Worker: Sg Edward PhD, Phone: [phone] Bree NEGRON LAB BLOOD ORDERABLES Final Result Performing Organization Address [facility] de Phone Number [...] - 10/04/2024 9:36 AM CDT Performed at: [address] [id number] Acoustical Material Worker: Sg Edward PhD, Phone: [phone] Bree NEGRON LAB BLOOD ORDERABLES Final Result [...] 10/04/2024 9:36 AM CDT Performed at: - [address] [id number] Acoustical Material Worker: Sg Edward PhD, Phone: [phone] Bree NEGRON LAB BLOOD ORDERABLES Final Result [facility] - 01 * XR Spine Thoracic [...] Negative Ketones, ur, POC Negative Negative Specific [place], POC 1.030 1.003 - 1.030 Blood, ur, POC Negative Negative pH, ur, POC 5.5 5.0 - 8.0 Protein, ur, POC Negative Negative Urobilinogen, urine, POC 0.2 0.2 - 1.0 mg/dL Nitrite, ur, POC Negative Negative Leukocytes, ur, POC Trace(A) Negative Lot Number [id number] Urine 09/18/2024 11:5 7 AM CDT Bree NEGRON POINT OF CARE TEST ORDERAB LES Final Result * Urine culture Urine, clean voided (09/18/2024 11:47 AM CDT) Urine culture [employer] Comment: CULTURE, URINE, ROUTINE Micro Number: [id number] Test Status: Final Specimen Source: Urine Specimen [...] GENERAL ORDERABLES Final Result Performing Organization Address City/[facility]/ZIP Co de Phone Number [email or web address] [address] [place] [address] * Albumin Creatinine Ratio, Urine (06/06/2024 7:22 AM DIGITAL ADVERTISING SPECIALIST) Creatinine ur 213.1 Not Estab. mg/dL [facility] - 01 Microalbumin, ur 8.7 Not Estab. ug/mL [facility] - 01 Microalbumin/cre at ratio 4 0 - 29 mg/g creat [facility] - 01 Comment: Normal: 0 - 29 Moderately increased: 30 - 300 Severely increased: >300 Urine 06/06/2024 7:22 AM DIGITAL ADVERTISING SPECIALIST 06/06/2024 Narrative [facility] - 06/07/2024 9:36 AM DIGITAL ADVERTISING SPECIALIST Performed at: [address] [place] [id number] Acoustical Material Worker: Sg Edward PhD, Phone: [phone] Bree NEGRON LAB URINE ORDERABLES Final Result [facility] - 01 * Pap and HPV, reflex to HPV Genotypes (07/09/2023 4:32 PM CDT) CLINICAL INFORMATION: [employer] [facility] Comment:CX CANCER SCREENING LMP [employer] [facility] Comment:03/2024 Previous Pap [employer] [facility] Comment:INFORMATION NOT PROV IDED Prev. Bx [employer] [facility] Comment:INFORMATION NOT PROV IDED SOURCE: [facility] Comment:Cervix, Endocervix Pap, specimen adequacy [facility] Comment: Satisfactory for evaluation. Endocervical/transformation zone component present. HPV interp [facility] Comment: Cytology Results: Negative for intraepithelial lesion or malignancy. COMMENTS [facility] Comment: This Pap test has been evaluated with computer assisted technology. Jewel Sorter [facility] Comment: MMW, CT(ASCP) CT screening location: [place] [address] [address] [address] Comment [facility] Comment: EXPLANATORY NOTE: The Pap is [...] High Risk E6/E7 Not Detected NOT DETECTED [employer] /Barbie FLORENTINO Comment: Not Detected High Risk HPV types (16,18,31,33,35,39,45,51,52, 56,58,59,66,68) were not detected. Other HPV types which cause anogenital lesions may be present. The significance of the other types of HPV in malignant processes has not been established. Methodology: Real Time PCR Thin prep 07/09/2023 4:32 PM CDT 07/12/2023 6:32 AM CDT Bree NEGRON LAB CYTOLOGY ORDERABLES Fi nal Result [facility] [address] [place] [place] [phone] Celia Dela Cruz/[place] [address] [facility] CHADD Mercado [phone] * COLONOSCOPY (08/01/2022 8:16 AM CDT) Anatomical Region Laterality Modality Other Narrative Procedure Note Claritza Acevedo MD - 08/01/2022 8:16 AM CDT [facility] GI ENDOSCOPY Patient Name: Ashley Arciniega Procedure Date: 08/01/2022 8:16 AM Date of : 1975 Admit Type: Outpatient Age: 47 Gender: Female Attending MD: Claritza Acevedo M.D. Room: [facility] ENDOSCOPY ROOM 05 Note Status: Finalized Procedure: [...] The scope was passed under direct vision.The [id number] colonoscope was introduced through theanus and advanced [...] On: 08/01/2022 8:16 AM Recognized by the [place] [employer] for promoting quality in endoscopy Claritza Acevedo MD ENDOSCOPY PROCEDURES Final Resul t from Last 3 Months or Most Recently Relevant to Health Maintenance Insurance [facility] PLUS [facility] PLUS [facility] [employer] PLUS Care Teams Firer Boiler Relationship Specialty Start Date End Date Bree Cruz PA [address] [address] PCP - General Internal Medicine 08/07/18
--- OUTSIDE RECORDS SUMMARY | 2024-10-26 03:11 | XMS_ITS | Encounter Summary ---
Author Organization [facility] Healthcare Address [address] [place] [address] Care Team Providers Care Plasticator Name Role Phone Bree Cruz Primary Care Provider +1- [phone] Encounter Details Date Type Department Care Team (Latest Contact Info) Description 10/04/2024 Results Follow-Up [facility] Family Medicine [address] [place] [address] Bree Cruz PA [address] [place] [address] Hemoglobin A1c, Comprehensive metabolic panel, [...] on file Legal Sex Female 8:43 PM SALES VICE PRESIDENT Gender Identity Not on file Sexual Orientation Not on file 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
== END 2024-10-26 04:05 | disposition home or self-care (01) ==
PROVIDERS: Emergency Provider Student in an Organized Health Care Education/Training Program; PCP Physician Assistant
DX: S01.511A Laceration without foreign body of lip, initial encounter (principal); Z87.891 Personal history of nicotine dependence; W10.9XXA Fall (on) (from) unspecified stairs and steps, initial encounter
CPT/HCPCS: 12011; 99282

== ENCOUNTER 2024-10-29 12:13 | Outpatient (CLI) | payer OTHER, SELFPAY ==
--- NOTE | ~2024-10-29 | MM_ITS ---
EXAMINATION: MM diagnostic lauren LT w keith INDICATION: 49-year old female; BI-RADS 0, callback to evaluate Left breast focal asymmetry COMPARISON: 10/20/2024 TECHNIQUE: Digital breast tomosynthesis True lateral view and spot compression pain CC and MLO views of Both breasts were obtained with computer-aided detection to assist in interpretation of the study. FINDINGS: There are scattered areas of fibroglandular density. The focal asymmetry seen in the lower central Left breast on the screening mammogram effaces on spot compression views compatible with superimposition of fibroglandular tissue. IMPRESSION: Left breast asymmetry represents superimposition of fibroglandular tissue. No further investigation i s necessary. RECOMMENDATION: Annual screening mammography in 12 months BI-RADS 2, BENIGN Reviewed, dictated and finalized at location B. IMPRESSION: Left breast asymmetry represents superimposition of fibroglandular tissue. No f urther investigation is necessary. RECOMMENDATION: Annual screening mammography in 12 months BI-RADS 2, BENIGN
--- OUTSIDE RECORDS SUMMARY | 2024-10-29 12:24 | XMS_ITS | Encounter Summary ---
Author Organization [facility] Healthcare Address [address] [place] [address] Care Team Providers Care Iuss Acoustic Analyst Name Role Phone Bree Cruz Primary Care Provider +1- [phone] Encounter Details Date Type Department Care Team (Late st Contact Info) Description 09/20/2024 Results Follow-Up [facility] Medical Group Family Medicine [address] [place] [address] Bree Cruz PA [address] [place] [address] POCT urinalysis dipstick, Urine culture [...] on file Legal Sex Female 8:43 PM TRANSPLANT COORDINATOR Gender Identity Not on file Sexual Orientation Not on file 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
--- OUTSIDE RECORDS SUMMARY | 2024-10-29 12:24 | XMS_ITS | Encounter Summary ---
Author Organization [facility] Healthcare Address [address] [place] [address] Care Team Providers Care Rotary Rock Drilling Machine Operator Name Role Phone Bree Cruz Primary Care Provider +1- [phone] Encounter Details Date Type Department Care Team (Latest Contact Info) Description 10/04/2024 Results Follow-Up [facility] Medical Group Family Medicine [address] [place] [address] Bree Cruz PA [address] [place] [address] Hemoglobin A1c, Comprehensive metabolic panel, [...] on file Legal Sex Female 8:43 PM GRAPHIC DESIGN SPECIALIST Gender Identity Not on file Sexual Orientation Not on file 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
--- OUTSIDE RECORDS SUMMARY | 2024-10-29 12:24 | XMS_ITS | Encounter Summary ---
Author Organization [facility] Healthcare Address [address] [place] [address] Care Team Providers Care Verifying Machine Operator Name Role Phone Bree Cruz Primary Care Provider +1- [phone] Reason for Visit * Reason Onset Date Comments Medical Question/Miscellaneous 10/01/2024 Encounter Details Date Type Department Care Team (Late st Contact Info) Description 10/01/2024 Telephone [facility] Medical Group Family Medicine [address] [facility] [address] [place] [address] Bree Cruz PA [address] [place] [address] Medical Question/Miscellaneous Social History Tobacco [...] on file Legal Sex Female 8:43 PM PHOTOVOLTAIC PANEL INSTALLER Gender Identity Not on file Sexual Orientation Not on file 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
--- OUTSIDE RECORDS SUMMARY | 2024-10-29 12:25 | XMS_ITS | Encounter Summary ---
Author Organization [facility] Healthcare Address [address] [place] [id number] Care Team Providers Care Dental Practitioner Name Role Phone Bree Cruz Primary Care Provider +1- [phone] Reason for Visit * Reason Onset Date Comments Medical Question/Miscellaneous 10/27/2024 Encounter Details Date Type Department Care Team (Late st Contact Info) Description 10/27/2024 Telephone [facility] Family Medicine [address] [facility] [address] [place] [address] Bree Cruz PA [address] [place] [address] Medical Question/Miscellaneous Social History Tobacco [...] on file Legal Sex Female 8:43 PM PANEL EDGE SEALER Gender Identity Not on file Sexual Orientation Not on file 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 * Telephone Encounter - Ashley Johnson - 10/28/2024 12:25 PM CDT Reason for Warm Transfer: Patient returning call from practice Practice Accepted the Warm Transfer? Yes Additional Comments If YES above, and no barriers. * Telephone Encounter - Evelina Franco LPN - 10/28/2024 8:15 AM CDT Called and LVM for pt to return call. Please transfer through to office. * Telephone Encounter - Evelina Franco LPN - 10/27/2024 9:05 AM CDT Patient went to [place] ER on 10/25/24 due to fall with laceration to lower lip. Pt received 5 sutures to lower lip. Pt is to have sutures removed in approximally 10 days. Called pt and LVM for her to return call to be scheduled. Please transfer through to office to [place]. See attached ER notes. documented in this encounter Plan of Treatment Not on file documented as of this encounter Visit Diagnoses Not on filedocumented in this encounter Care Teams Dental Practitioner Relationship Specialty Start Date End Date Bree Cruz PA [address] [facility] [address] [place] [address] PCP - General Internal Medicine 08/07/18 documented as of this encounter
--- OUTSIDE RECORDS SUMMARY | 2024-10-29 12:25 | XMS_ITS | Referral Summary ---
Author Organization [facility] [address] [place] [address] [place] [phone] Care Team Providers Care Product Marketing Intern Name Role Phone Bree Cruz Primary Care Provider [phone]- [phone] Encounters Date Type Department Care Team Description 10/27/2024 Telephone [facility] Medicine [address] [place] [address] [address] [place] [phone] Bree Cruz PA Medical Question/Miscellaneous 10/21/2024 Orders Only [address] [place] [phone] Bree Cruz PA Abnormal mammogram (Primary Dx) 10/21/2024 Results Follow-Up [address] [place] [phone] Bree Cruz PA Screening Mammogram Bilateral W Micheal 10/16/2024 10:00 AM CDT Office Visit [facility] Hand Surgery [facility] [address] [place] [phone] Cielo Eldridge MD Osteoarthritis of carpometacarpal (CMC) joint of left thumb, unspecified osteoarthritis type (Primary Dx); Osteoarthritis of carpometacarpal (CMC) joint of right thumb, unspecified osteoarthritis type 10/08/2024 9:00 AM CDT Office Visit [address] [place] [address] Bree Cruz PA Annual physical exam (Primary Dx); Hyperlipidemia associated with type 2 diabetes mellitus (HCC); Controlled type 2 diabetes mellitus without complication, without long-term current use of insulin (HCC); Situational anxiety; Acquired hypothyroidism; Vitamin D deficiency; Gastroesophageal reflux disease without esophagitis; Breast cancer screening by mammogram; Immunity status testing; Morbid obesity (HCC); BMI 39.0-39.9,adult 10/06/2024 Telephone [facility] Diabetes and Endocrinology [address] [place] [phone] Ruby Diaz, YASIR Med Refill (Levothyroxine) 10/04/2024 Results Follow-Up [facility] Medicine [address] [place] [phone] Bree Cruz PA Hemoglobin A1c, Comprehensive metabolic panel, Lipid panel, Vitamin B12 10/03/2024 Telephone [facility] Diabetes and Endocrinology [address] [place] [phone] Ruby Diaz, YASIR Prior Auth (Ozempic) 10/01/2024 Orders Only [facility] Medicine [address] [place] [phone] Bree Cruz PA Controlled type 2 diabetes mellitus without complication, without long-term current use of insulin (HCC) (Primary Dx) 10/01/2024 Telephone [facility] Medicine [address] [place] [phone] Bree Cruz PA Medical Question/Miscellaneous 09/30/2024 Telephone [facility] [address] [place] [phone] Ruby Diaz, ORACLE FUSION MIDDLEWARE DEVELOPER Med Refill 09/20/2024 Results Follow-Up [facility] Medicine [address] [place] [phone] Bree Cruz PA POCT urinalysis dipstick, Urine culture Urine, clean voided, XR Spine Thoracic 3 Vw 09/18/2024 11:30 AM CDT Office Visit [address] [place] [phone] Bree Cruz PA Chronic left-sided thoracic back pain (Primary Dx); Primary osteoarthritis of both hands; BMI 40.0-44.9, adult ([facility]); Obesity, morbid, BMI 40.0-49.9 ([facility]) 09/18/2024 Nurse Triage [address] [place] [phone] Doris Spence RN from Last [...] complication, without long-term current use of insulin ([facility]) Inject 0.5 mg under the skin [...] complication, without long-term current use of insulin ([facility]) Take 2 tablets (1,000 mg total) [...] 09/28/2024 Hyperlipidemia associated with type 2 diabetes royr lambert 06/16/2024 Assessment & Plan (10/18/2024 11:28 [...] of continued A1c control to minimize the terminal superintendent effects of diabetes. Bring accuchecks to office [...] mychart. Aware to check results/results letter in [employer]. Will contact by phone if needed. DM [...] The patient to send a message via [employer] in 4 to 6 weeks to see [...] pharmacy Assessment & Plan (05/13/2023 8:35 PM SCENIC ARTIST): Continue Lexapro 20 Assessment & Plan (10/01/2022 [...] symptoms. Assessment & Plan (05/01/2021 6:27 PM SCENIC ARTIST): Patient has tolerated the Lexapro 10 without [...] update TFTs today. Verified that she uses [facility]. Aware to check results/results letter in [employer]. Will contact by phone if needed. Assessment & Plan (09/26/2023 10:43 AM CDT): Continue levothyroxine. Managed by Dr. Contreras Assessment & Plan (08/13/2023 12:28 PM CDT): Chronic, probably over replaced Update TFTs Will adjust dose of medication, probably stopped Cytomel and continue with levothyroxine Assessment & Plan (05/13/2023 8:35 PM SCENIC ARTIST): History of hypothyroidism. Was managed by Dr. Cuevas but she is moved out of the area. Would like to establish with a new merchandising internship. Recommend the [facility] Endocrine group at [place]. Will make referral. She has all of [...] Reviewed immunizations Reviewed age appropirate screenings. Plans PATIENT REGISTRAR followup with PATIENT REGISTRAR Vitamin D deficiency 08/08/2018 Assessment & Plan (10/18/2024 11:27 PM CDT): Supplement Assessment & Plan (09/26/2023 10:43 AM CDT): Supplement Assessment & Plan (05/13/2023 8:34 PM SCENIC ARTIST): Supplement Assessment & Plan (09/17/2021 2:50 PM [...] symptoms. Assessment & Plan (05/13/2023 8:35 PM SCENIC ARTIST): Continue omeprazole p.r.n. Assessment & Plan (10/01/2022 [...] 025 Assessment & Plan (05/13/2023 8:38 PM SCENIC ARTIST): Flu vaccine updated in the office today Bilateral thumb pain 05/13/2023 Assessment & Plan (07/15/2023 9:05 PM CDT): Bilateral thumb pain. Has tried Mobic and did not notice much change. Will refer to Dr. Eldridge for further evaluation Assessment & Plan (05/13/2023 8:38 PM SCENIC ARTIST): Patient notes bilateral thumb pain. No know injury. Will check x-rays. Encouraged Mobic to see if that helps with the inflammation. May ice the area. Symptoms persist will consider referral to orthopedics for further evaluation. She is in agreement with the plan BMI 40.0-44.9, adult 10/19/2021 Assessment & Plan (09/18/2024 11:35 AM CDT): [...] provided. Assessment & Plan (05/13/2023 8:35 PM SCENIC ARTIST): Discussed the patient's BMI. The BMI is [...] management. Assessment & Plan (05/02/2023 7:47 AM SCENIC ARTIST): Discussed the patient's BMI. The BMI is [...] 2 brochures that are published by the [place] [employer] regarding understanding insomnia [...] 10/18/2024 Assessment & Plan (05/13/2023 8:35 PM SCENIC ARTIST): Pre-diabetes/hyperglycemia is a precursor to Dm. Stressed [...] monitor. 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 Not on file Not [...] Routine) 10/20/2024 Breast cancer screening by mammogram UT ARTHROCENTESIS ASPIR&/INJ SMALL JT/BURSA W/O US Routine 10/16/2024 10:00 AM CDT Osteoarthritis of carpometacarpal (CMC) joint of right thumb, unspecified osteoarthritis type UT ARTHROCENTESIS ASPIR&/INJ SMALL JT/BURSA W/O US Routine [...] CREATININE RATIO, URINE Routine 06/06/2024 7:22 AM SCENIC ARTIST Type 2 diabetes mellitus without complication, without [...] NEGRON IMG MAMMO PROCEDURES Final Result * UT ARTHROCENTESIS ASPIR&/INJ SMALL JT/BURSA W/O US (10/16/2024 [...] IN CLINIC/BEDSIDE ORDERAB LES Final Result * UT ARTHROCENTESIS ASPIR&/INJ SMALL JT/BURSA W/O US (10/16/2024 [...] B12 (10/03/2024 9:47 AM CDT) Pathologist [facility] Vitamin B12 321 232 - 1,245 pg/mL [facility] - 01 Blood 10/03/2024 9:47 AM CDT 10/03/2024 Narrative [facility] - 10/04/2024 9:36 AM CDT Performed at: [address] [place] [id number] Salon Stylist: Sg Edward PhD, Phone: [phone] Bree NEGRON LAB BLOOD ORDERABLES Final Result Performing Organization Address [facility] Co de Phone Number [facility] * (ABNORMAL) Hemoglobin A1c (10/03/2024 9:46 AM CDT) [facility] Hgb A1C 5.7(H) 4.8 - 5.6 % [facility] - Comment: Prediabetes: 5.7 - 6.4 Diabetes: >6.4 Glycemic control for adults with diabetes: <7.0 Blood 10/03/2024 9:46 AM CDT 10/03/2024 Narrative [facility] - 10/04/2024 7:37 AM CDT Performed at: [address] [place] [id number] Salon Stylist: Sg Edward PhD, Phone: [phone] Bree NEGRON LAB BLOOD ORDERABLES Final Result Performing Organization Address [facility] de Phone Number [facility] - * [...] - 10/04/2024 9:36 AM CDT Performed at: [address] [place] [address] [id number] Salon Stylist: Sg Edward PhD, Phone: [phone] Bree NEGRON LAB BLOOD ORDERABLES Final Result Performing Organization Address [facility] de Phone Number [facility] * (ABNORMAL) Comprehensive metabolic panel (10/03/2024 9:46 [...] 10/04/2024 9:36 AM CDT Performed at: - [address] [id number] Salon Stylist: Sg Edward PhD, Phone: [phone] us Bree NEGRON LAB BLOOD ORDERABLES Final Result [facility] - * XR Spine Thoracic 3 Vw (09/22/2024 1:56 PM CDT) Anatomical Region Laterality Modality Spine N/A Radiographic Maty ging Impressions 09/22/2024 1:56 PM CDT No acute osseous abnormality of the thoracic spine us Bree NEGRON IMG XR PROCEDURES Final Re sult * (ABNORMAL) POCT urinalysis dipstick (09/18/2024 11:57 AM CDT) Glucose, ur, POC Negative Negative Bilirubin, ur, POC Negative Negative Ketones, ur, POC Negative Negative Specific Merritt, POC 1.030 1.003 - 1.030 Blood, ur, POC Negative Negative pH, ur, POC 5.5 5.0 - 8.0 Protein, ur, POC Negative Negative Urobilinogen, urine, POC 0.2 0.2 - 1.0 mg/dL Nitrite, ur, POC Negative Negative Leukocytes, ur, POC Trace(A) Negative Lot Number [id number] Urine 09/18/2024 11:5 7 AM CDT us Bree NEGRON POINT OF CARE TEST ORDERAB LES Final Result * Urine culture Urine, clean voided (09/18/2024 11:47 AM CDT) [facility] Urine culture [employer] Y[facility] Comment: CULTURE, URINE, ROUTINE Micro Number: [id number] Test Status: Final Specimen Source: Urine Specimen [...] GENERAL ORDERABLES Final Result Performing Organization Address [facility] Co de Phone Number [facility] [address] [place] [address] * Albumin Creatinine Ratio, Urine (06/06/2024 7:22 AM SCENIC ARTIST) [facility] Creatinine ur 213.1 Not Estab. mg/dL [facility] - 01 Microalbumin, ur 8.7 Not Estab. ug/mL [facility] - 01 Microalbumin/cre at ratio 4 0 - 29 mg/g creat [facility] - 01 Comment: Normal: 0 - 29 Moderately increased: 30 - 300 Severely increased: >300 Urine 06/06/2024 7:22 AM SCENIC ARTIST 06/06/2024 Narrative [facility] - 06/07/2024 9:36 AM SCENIC ARTIST Performed at: 01 - [facility] [address] [id number] Salon Stylist: Sg Edward PhD, Phone: [phone] Bree NEGRON LAB URINE ORDERABLES Final Result Performing Organization Address [facility]/ZIP Co de Phone Number [facility] - 01 * Pap and HPV, reflex to HPV Genotypes (07/09/2023 4:32 PM CDT) CLINICAL INFORMATION: [facility] Comment:CX CANCER SCREENING LMP [facility] Comment:03/2024 Previous Pap [facility] Comment:INFORMATION NOT PROV IDED Prev. Bx [facility] Comment:INFORMATION NOT PROV IDED SOURCE: [facility] Comment:Cervix, Endocervix Pap, specimen adequacy [facility] Comment: Satisfactory for evaluation. Endocervical/transformation zone component present. HPV interp [facility] Comment: Cytology Results: Negative for intraepithelial lesion or malignancy. COMMENTS [facility] Comment: This Pap test has been evaluated with computer assisted technology. Field Sales Trainer [facility] Comment: MMW, CT(ASCP) CT screening location: [place] [address] [address] [place] [id number] Comment [facility] Comment: EXPLANATORY NOTE: The Pap is a [...] High Risk E6/E7 Not Detected NOT DETECTED [employer] Jose De Jesus /Barbie FLORENTINO Comment: Not Detected High Risk HPV types (16,18,31,33,35,39,45,51,52, 56,58,59,66,68) were not detected. Other HPV types which cause anogenital lesions may be present. The significance of the other types of HPV in malignant processes has not been established. Methodology: Real Time PCR Thin prep 07/09/2023 4:32 PM CDT 07/12/2023 6:32 AM CDT us Bree NEGRON LAB CYTOLOGY ORDERABLES Fi nal Result [facility] [address] [place] [phone] [employer]/[place] [address] [facility] CHADD Mercado [phone] * COLONOSCOPY (08/01/2022 8:16 AM CDT) Anatomical Region Laterality Modality Other Narrative Procedure Note Claritza Acevedo MD - 08/01/2022 8:16 AM CDT [facility] Patient Name: Ashley Arciniega Procedure Date: 08/01/2022 8:16 AM Date of : 1975 Admit Type: Outpatient Age: 47 Gender: Female Attending MD: Claritza Acevedo M.D. Room: [facility] ENDOSCOPY ROOM 05 Note Status: Finalized [...] The scope was passed under direct vision.The -[id number] colonoscope was introduced through theanus and advanced [...] On: 08/01/2022 8:16 AM Recognized by the [place] [employer] for promoting quality in endoscopy Claritza Acevedo MD ENDOSCOPY PROCEDURES Final Resul t from Last 3 Months or Most Recently Relevant to Health Maintenance Insurance [facility] CHOICE PLUS CHOICE PLUS CHOICE PLUS Care Teams Product Marketing Intern Relationship Specialty Start Date End Date Bree Cruz PA [address] [place] [address] PCP - General Internal Medicine 08/07/18
--- OUTSIDE RECORDS SUMMARY | 2024-10-29 12:25 | XMS_ITS | Clinical Summary ---
Author Organization [facility] Address [address] [place] [address] Care Team Providers Care Senior Visual Designer Name Role Phone Bree Cruz Primary Care Provider +1- [phone] Allergies No known active allergies Medications cetirizine [...] of continued A1c control to minimize the alf effects of diabetes. Bring accuchecks to office [...] Will update labs. Verified that she uses [facility]. Aware to check results/results letter in [employer]. Will contact by phone if needed. DM [...] The patient to send a message via [employer] in 4 to 6 weeks to see [...] pharmacy Assessment & Plan (05/13/2023 8:35 PM SLEEP TECH): Continue Lexapro 20 Assessment & Plan (10/01/2022 [...] symptoms. Assessment & Plan (05/01/2021 6:27 PM SLEEP TECH): Patient has tolerated the Lexapro 10 without [...] update TFTs today. Verified that she uses [employer]. Aware to check results/results letter in [employer]. Will contact by phone if needed. Assessment & Plan (09/26/2023 10:43 AM CDT): Continue levothyroxine. Managed by Dr. Contreras Assessment & Plan (08/13/2023 12:28 PM CDT): Chronic, probably over replaced Update TFTs Will adjust dose of medication, probably stopped Cytomel and continue with levothyroxine Assessment & Plan (05/13/2023 8:35 PM SLEEP TECH): History of hypothyroidism. Was managed by Dr. Cuevas but she is moved out of the area. Would like to establish with a new heel burnisher. Recommend the [facility] at [place]. Will make referral. She has all of [...] Reviewed immunizations Reviewed age appropirate screenings. Plans CLINICAL MEDICAL TRANSCRIPTIONIST followup with CLINICAL MEDICAL TRANSCRIPTIONIST Vitamin D deficiency 08/08/2018 Assessment & Plan (10/18/2024 11:27 PM CDT): Supplement Assessment & Plan (09/26/2023 10:43 AM CDT): Supplement Assessment & Plan (05/13/2023 8:34 PM SLEEP TECH): Supplement Assessment & Plan (09/17/2021 2:50 PM [...] symptoms. Assessment & Plan (05/13/2023 8:35 PM SLEEP TECH): Continue omeprazole p.r.n. Assessment & Plan (10/01/2022 [...] 025 Assessment & Plan (05/13/2023 8:38 PM SLEEP TECH): Flu vaccine updated in the office today Bilateral thumb pain 05/13/2023 025 Assessment & Plan (07/15/2023 9:05 PM CDT): Bilateral thumb pain. Has tried Mobic and did not notice much change. Will refer to Dr. Eldridge for further evaluation Assessment & Plan (05/13/2023 8:38 PM SLEEP TECH): Patient notes bilateral thumb pain. No know [...] provided. Assessment & Plan (05/13/2023 8:35 PM SLEEP TECH): Discussed the patient's BMI. The BMI is [...] management. Assessment & Plan (05/02/2023 7:47 AM SLEEP TECH): Discussed the patient's BMI. The BMI is [...] 2 brochures that are published by the [place] [employer] regarding understanding insomnia [...] 10/18/2024 Assessment & Plan (05/13/2023 8:35 PM SLEEP TECH): Pre-diabetes/hyperglycemia is a precursor to Dm. Stressed [...] monitor. She will discuss further with her heel burnisher that we set her up with at [facility] Assessment & Plan (10/01/2022 8:35 PM CDT): [...] Type Department Care Team Description 10/27/2024 Telephone [facility] Medicine [address] [place] [address] [address] [place] [address] Bree Cruz PA Medical Question/Miscellaneous 10/21/2024 Orders Only [facility] Medicine [address] [facility] [address] [place] [address] Bree Cruz PA Abnormal mammogram (Primary Dx) 10/21/2024 Results Follow-Up [address] [place] [address] Bree Cruz PA Screening Mammogram Bilateral W Micheal 10/16/2024 10:00 AM CDT Office Visit [facility] Hand Surgery [address] [place] [address] Cielo Eldridge MD Osteoarthritis of carpometacarpal (CMC) joint of left thumb, unspecified osteoarthritis type (Primary Dx); Osteoarthritis of carpometacarpal (CMC) joint of right thumb, unspecified osteoarthritis type 10/08/2024 9:00 AM CDT Office Visit [address] [address] Bree Cruz PA Annual physical exam (Primary Dx); Hyperlipidemia associated with type 2 diabetes mellitus (HCC); Controlled type 2 diabetes mellitus without complication, without long-term current use of insulin (HCC); Situational anxiety; Acquired hypothyroidism; Vitamin D deficiency; Gastroesophageal reflux disease without esophagitis; Breast cancer screening by mammogram; Immunity status testing; Morbid obesity (HCC); BMI 39.0-39.9,adult 10/06/2024 Telephone [facility] Diabetes and Endocrinology [address] [place] [phone] Ruby Diaz, YASIR Med Refill (Levothyroxine) 10/04/2024 Results Follow-Up [address] [address] Bree Cruz PA Hemoglobin A1c, Comprehensive metabolic panel, Lipid panel, Vitamin B12 10/03/2024 Telephone [facility] Diabetes and Endocrinology [address] [place] [phone] Ruby Diaz, YASIR Prior Auth (Ozempic) 10/01/2024 Orders Only [address] [address] Bree Cruz PA Controlled type 2 diabetes mellitus without complication, without long-term current use of insulin (HCC) (Primary Dx) 10/01/[address] [place] [address] Bree Cruz PA Medical Question/Miscellaneous 09/30/2024 Telephone [facility] [id number] [place] [address] [address], [place] [address] Ruby Diaz NP Med Refill 09/20/2024 Results Follow-Up [address] [address] Bree Cruz PA POCT urinalysis dipstick, Urine culture Urine, clean voided, XR Spine Thoracic 3 Vw 09/18/2024 11:30 AM CDT Office Visit [address] [address] Bree Cruz PA Chronic left-sided thoracic back pain (Primary Dx); Primary osteoarthritis of both hands; BMI 40.0-44.9, adult (HCC); Obesity, morbid, BMI 40.0-49.9 (HCC) 09/18/2024 Nurse Triage [address] [address] Doris Spence RN from Last 3 Months Immunizations Immunization Administration Dates Next Due Influenza, Quadrivalent, Spl it, Preservative Free, Intramuscular 05/02/2023 Influenza, Unspecified 04/09/2024(Deferr ed: Patient Refused),05/10/2021(Deferred: Patient Refused),05/10/2021(Deferred: Patient Refused),04/09/2020(Deferred: Patient Refused),06/26/2019(Deferred: Patient Refused) Pfizer SARS-CoV-2 Monovalent Vaccination (12+ Yrs) PURPLE 06/17/2020,05/20/2020 Tdap 08/08/2018 Surgical History Surgery Date Site/Laterality Comments THYROID SURGERY SECTION [id number] CHOLECYSTECTOMY O5 [id number] Medical History Medical History Date Comments COVID-19 [...] on file Legal Sex Female 8:43 PM SLEEP TECH Gender Identity Not on file Sexual Orientation Not on file 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 Not on file Not [...] Routine) 10/20/2024 Breast cancer screening by mammogram [place] ARTHROCENTESIS ASPIR&/INJ SMALL JT/BURSA W/O US Routine 10/16/2024 10:00 AM CDT Osteoarthritis of carpometacarpal (CMC) joint of right thumb, unspecified osteoarthritis type [place] ARTHROCENTESIS ASPIR&/INJ SMALL JT/BURSA W/O US Routine [...] CREATININE RATIO, URINE Routine 06/06/2024 7:22 AM SLEEP TECH Type 2 diabetes mellitus without complication, without [...] NEGRON IMG MAMMO PROCEDURES Final Result * [place] ARTHROCENTESIS ASPIR&/INJ SMALL JT/BURSA W/O US (10/16/2024 [...] IN CLINIC/BEDSIDE ORDERAB LES Final Result * [place] ARTHROCENTESIS ASPIR&/INJ SMALL JT/BURSA W/O US (10/16/2024 [...] * Vitamin B12 (10/03/2024 9:47 AM CDT) [facility] Vitamin B12 321 232 - 1,245 pg/mL [facility] - 01 Blood 10/03/2024 9:47 AM CDT 10/03/2024 Narrative [facility] - 10/04/2024 9:36 AM CDT Performed at: [address] [place] [id number] [employer] Operator: Sg Edward PhD, Phone: [phone] Bree NEGRON LAB BLOOD ORDERABLES Final Result [facility] * (ABNORMAL) Hemoglobin A1c (10/03/2024 9:46 AM CDT) [facility] Hgb A1C 5.7(H) 4.8 - 5.6 % [facility] - 01 Comment: Prediabetes: 5.7 - 6.4 Diabetes: >6.4 Glycemic control for adults with diabetes: <7.0 Blood 10/03/2024 9:46 AM CDT 10/03/2024 Narrative [facility] - 10/04/2024 7:37 AM CDT Performed at: [address] [place] [id number] [employer] Operator: Sg Edward PhD, Phone: [phone] Bree NEGRON LAB BLOOD ORDERABLES Final Result Performing Organization Address [facility] Co de Phone Number [facility] * Lipid panel (10/03/2024 9:46 AM [...] - 10/04/2024 9:36 AM CDT Performed at: [address] [place] [address] [id number] [employer] Operator: Sg Edward PhD, Phone: [phone] Bree NEGRON LAB BLOOD ORDERABLES Final Result Performing Organization Address [facility] de Phone Number [facility] * (ABNORMAL) [...] - 10/04/2024 9:36 AM CDT Performed at: [address] [place] [address] [id number] [employer] Operator: Sg Edward PhD, Phone: [phone] Bree NEGRON LAB BLOOD ORDERABLES Final Result Performing Organization Address City/State/[facility] Co de Phone Number [facility] * XR Spine Thoracic 3 Vw (09/22/2024 [...] Negative Ketones, ur, POC Negative Negative Specific [place], POC 1.030 1.003 - 1.030 Blood, ur, POC Negative Negative pH, ur, POC 5.5 5.0 - 8.0 Protein, ur, POC Negative Negative Urobilinogen, urine, POC 0.2 0.2 - 1.0 mg/dL Nitrite, ur, POC Negative Negative Leukocytes, ur, POC Trace(A) Negative Lot Number [id number] Urine 09/18/2024 11:5 7 AM CDT Bree NEGRON POINT OF CARE TEST ORDERAB LES Final Result * Urine culture Urine, clean voided (09/18/2024 11:47 AM CDT) [facility]: CULTURE, URINE, ROUTINE Micro Number: [id number] Test Status: Final Specimen Source: Urine Specimen [...] GENERAL ORDERABLES Final Result Performing Organization Address City/[facility] Co de Phone Number [facility] [address] [place] [address] * Albumin Creatinine Ratio, Urine (06/06/2024 7:22 AM SLEEP TECH) Creatinine ur 213.1 Not Estab. mg/dL [facility] - 01 Microalbumin, ur 8.7 Not Estab. ug/mL [facility] - 01 Microalbumin/cre at ratio 4 0 - 29 mg/g creat [facility] - 01 Comment: Normal: 0 - 29 Moderately increased: 30 - 300 Severely increased: >300 Urine 06/06/2024 7:22 AM SLEEP TECH 06/06/2024 Narrative [facility] - 06/07/2024 9:36 AM SLEEP TECH Performed at: [facility] [id number] [employer] Operator: Sg Edward PhD, Phone: [phone] Bree NEGRON LAB URINE ORDERABLES Final Result Performing Organization Address City/[facility] Co de Phone Number [facility] - 01 * Pap and HPV, reflex to HPV Genotypes (07/09/2023 4:32 PM CDT) CLINICAL INFORMATION: [facility] Comment:CX CANCER SCREENING LMP [facility] Comment:03/2024 Previous Pap [facility] Comment:INFORMATION NOT PROV IDED Prev. Bx [facility] Comment:INFORMATION NOT PROV IDED SOURCE: [facility] Comment:Cervix, Endocervix Pap, specimen adequacy [facility] Comment: Satisfactory for evaluation. Endocervical/transformation zone component present. HPV interp [facility] Comment: Cytology Results: Negative for intraepithelial lesion or malignancy. COMMENTS [facility] Comment: This Pap test has been evaluated with computer assisted technology. Beam Sealer [facility] Comment: MMW, CT(ASCP) CT screening location: [place] [address] [address] [place] Te[place]ira [id number] Comment [facility] Comment: EXPLANATORY NOTE: The Pap is a [...] High Risk E6/E7 Not Detected NOT DETECTED Celia Dela Cruz [facility] [place] Comment: Not Detected High Risk HPV types (16,18,31,33,35,39,45,51,52, 56,58,59,66,68) were not detected. Other HPV types which cause anogenital lesions may be present. The significance of the other types of HPV in malignant processes has not been established. Methodology: Real Time PCR Thin prep 07/09/2023 4:32 PM CDT 07/12/2023 6:32 AM CDT Bree NEGRON LAB CYTOLOGY ORDERABLES Fi nal Result [place] [address] [address] [place] [address] Celia Dela Cruz[facility] [id number] [place] [address] CHADD Mercado [phone] * COLONOSCOPY (08/01/2022 8:16 AM CDT) Anatomical Region Laterality Modality Other Narrative Procedure Note Claritza Acevedo MD - 08/01/2022 8:16 AM CDT [facility] GI ENDOSCOPY Patient Name: Ashley Arciniega Procedure Date: 08/01/2022 8:16 AM Date of : 1975 Admit Type: Outpatient Age: 47 Gender: Female Attending MD: Claritza Acevedo M.D. Room: [facility] ENDOSCOPY ROOM 05 Note Status: Finalized [...] The scope was passed under direct vision.The [id number] colonoscope was introduced through theanus and advanced [...] On: 08/01/2022 8:16 AM Recognized by the [place] [employer] for promoting quality in endoscopy Claritza Acevedo MD ENDOSCOPY PROCEDURES Final Resul t from Last 3 Months or Most Recently Relevant to Health Maintenance Insurance [facility] CHOICE PLUS CHOICE PLUS CHOICE PLUS Care Teams Senior Visual Designer Relationship Specialty Start Date End Date Bree Cruz PA [address] [address] PCP - General Internal Medicine 08/07/18
--- OUTSIDE RECORDS SUMMARY | 2024-10-29 12:25 | XMS_ITS | Encounter Summary ---
Author Organization [facility] Address [address] [place] [address] Care Team Providers Care Florist Supplies Salesperson Name Role Phone Bree Cruz Primary Care Provider [phone]- [phone] Reason for Visit * Reason Onset Date Comments Test Results 10/21/2024 Encounter Details Date Type Department Care Team (Late st Contact Info) Description 10/21/2024 Results Follow-Up [facility] Family Medicine [address] [place] [address] Bree Cruz PA [address] [place] [address] Screening Mammogram Bilateral W Micheal [...] on file Legal Sex Female 8:43 PM SAXOPHONE ASSEMBLER Gender Identity Not on file Sexual Orientation Not on file 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
--- OUTSIDE RECORDS SUMMARY | 2024-10-29 12:25 | XMS_ITS | Data Portability ---
Author Organization [facility], Main Office Address [address] [place] [address] Assessment No assessment recorded. Plan of Treatment Reminders Order Date Submit Date Provider Last Modified By Organization Details Last Modified Time Details Appointments None recorded. Lab None recorded. Referral None recorded. Procedures None recorded. Surgeries None recorded. Imaging None recorded. Medication Orders norethindro ne acetate 5 mg tablet 2022 023 ALFREDO [facility], [address] [place] [address], [address], 3 11:52:59 metformin ER 500 mg tablet,exte nded release 24 hr 2022 023 [facility], [address] [place] [address], [address], 3 11:52:59 liothyronin e 5 mcg tablet 2022 023 [facility], [address] [place] [address], [address], 3 11:53:01 Unithroid 137 mcg tablet 2022 023 [facility], [address] [place] [address], [address], 3 11:53:00 Patient TargetsNo targets recorded. Patient InstructionsNo instructions recorded. Reason for Referral None Reported. Results Created Date Observation Date Name Description Value Unit Range Abnormal Flag Note LastModifiedBy Organization Detail LastModifiedTime 03/07/20 22 03/07/2022 US, thyro id [facility] ed. [id number] [facility] [address], [place], [address], 06/07/2022 07:36:15 Result Notes None recorded. 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 Not Available [facility] 3 07:30:24 Impaired fasting glycemia 796257320 Active 2022 ABDI Ty, [email or web address] 3 13:55:59 Vitamin B12 deficiency (non anemic) 08006211 Active 2022 Sue Cuevas MD [address], [facility] [address], [place], [address] , [email or web address] 3 20:20:08 Uncontrolled type 2 diabetes mellitus 560484193 Active 2022 Sue Cuevas MD [address], [place], [address] , [employer] 3 20:20:16 Prediabetes 026022473 Active 2022 Sue Cuevas MD [address] [facility], [facility] [address], [place], [address] , [email or web address] 3 11:52:06 Problem Notes None recorded. Procedures Surgical History Date Name Laterality Status Provider Name and Address Organization Details Recorded Time thyroidectomy completed Not Available [facility] 06/07/2022 07:26:33 Cholecystectomy completed Not Available [facility] 06/07/2022 07:26:33 section completed Not Available [facility] 06/07/2022 07:26:33 Imaging Results None recorded. [...] Updated DateTime 3 162.56 cm 40.7 kg/m2 601777. 39 g 78 /min 98.2 [degF] 144/102 mm[Hg] Amber Acevedo MA [place] [facility] [place] [employer] [facility] 3 11:35:21 Date Recorded Body mass index (BMI) Body height Oxygen saturation Oxygen saturation in Arterial blood by Pulse oximetry Heart rate Body temperature Body weight Systolic And Diastolic Provider Name and Address Organization Details Last Updated DateTime 2 42.7 kg/m2 162.56 cm 97 % 97 % 76 /min 98 [degF] 969762. 5 g 125/90 mm[Hg] Not Available [facility] 3 07:28:19 Date Recorded Body height Oxygen saturation Oxygen saturation in Arterial blood by Pulse oximetry Heart rate Body temperature Systolic And Diastolic Provider Name and Address Organization Details Last Updated DateTime 2 162.56 cm 98 % 98 % 77 /min 97.9 [degF] 135/100 mm[Hg] Not Available [facility] 3 07:28:19 Social History Question Answer Notes LastModified by Organizat ion Details LastModified Time Tobacco Smoking Status Former Smoker Not Available [facility] 06/07/2022 07:26:17 What Is Your Level Of Caffeine Consumption? Occasional [id number] Information not available 06/07/2022 What Type Of Diet Are You Following? REGULAR [id number] Information not available 06/07/2022 How Many Days Of Moderate To Strenuous Exercise, Like A Brisk Walk, Did You Do In The Last 7 Days? 1 [id number] Information not available 06/07/2022 When Did You Quit Smoking? 11-15yearssinc elastcigarette [id number] Information not available 06/07/2022 What Is Your Relationship Status? [id number] Information not available 06/07/2022 Do You Have Any Dietary Restrictions? No [id number] Information not available 06/07/2022 Sex: Female Functional Status Question Answer Note LastModified by Organizat ion Details LastModified Time Do you or have you ever used any other forms of tobacco or nicotine? No [id number] Information not available 06/07/2022 What is your level of alcohol consumption? 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 Occasional [id number] Information not available 06/07/2022 Mental Status None recorded. Family History Relationship Description Onset Age of this Age Resolved Age Notes LastModified by Organization Details LastModified Time Father Malignant tumor of colon [id number] Not available 06/07/2022 07:26:35 Mother Malignant tumor of breast [id number] Not available 06/07/2022 07:26:35 Medical History Condition Response EYE PROBLEMS Y OBESITY Y EXCESSIVE PERSPIRATION Y GERD/NAUSEA Y HYPOTHYROIDISM Y DEPRESSION (INCLUDING POST ) Y INSOMNIA Y Gynecological HistoryNo gynecological history recorded. Obstetrics History GPAL:G 0 P 0 0 0 0 Past Encounters Encounter ID Performer Location Encounter Start Date Encounter Closed Date Diagnosis/Indication Diagnosis SNOMED-CT Code Diagnosis ICD10 Code Diagnosis Note [id number] MD MISAEL Flores [facility] [place] [address] [place] [address] 02/17/2022 00:00:00 02/17/2022 20:11:32 [id number] MD MISAEL Flores [facility] [place] [address] [place] [address] 04/07/2022 00:00:00 04/07/2022 10:34:35 [id number] MD MISAEL Flores [facility] [place] [address] [place] [address] 01/04/2023 11:11:31 01/04/2023 12:01:25 Hypothyroidism 12185259 E03.9 FT4 high range- due to weight [...] and minerals and reduce inflammati on. Prediabetes 418517191 R7 3.03 A1C of 6% - continue [...] (excluding peanuts) and beans. Perimenopa usal disorder 399168944 N95.9 Continue on progestero ne therapy as [...] Julian Member ID Guarantor Name 01/01/2023 1 [facility] [id number] Ashley Arciniega [id number] Ashley Arciniega Notes Date Note Type Note [...] uIU/mlFT4 of 1.45 ng/dLglucose 98 mg/dLCr normalLFT fxkgysq5s 6%Ft3 of 3.0 pg/ML Sue Cuevas MD [address] [facility], [place] [address], [place], [address], [facility] [employer] 01/04/2023 13:51:40 OBGyn Episode No OBEpisode recorded.
--- OUTSIDE RECORDS SUMMARY | 2024-10-29 12:25 | XMS_ITS | Clinical Summary ---
Author Organization [facility] Address [address] [place] [address] Care Team Providers Care Batch Still Operator Name Role Phone Unavailable Primary Care Provider [...]
== END 2024-10-29 12:14 | disposition home or self-care (01) ==
LOC: ANHIMG 12:23
PROVIDERS: PCP Physician Assistant; Visit Provider Physician Assistant
DX: R92.8 Other abnormal and inconclusive findings on diagnostic imaging of breast (principal)
CPT/HCPCS: 77061; 77065; G0279